=== PATIENT | female | born 1995 | race Caucasian/White ===

== ENCOUNTER → 2018-06-22 14:53 | Outpatient (CLI) | payer BC, SELFPAY ==
[2018-06-22 15:29] LABS: HCT 34.5 % (36.0-46.0); HGB 11.8 g/dL (12.0-15.5); Mean Corp. HGB Concentration 34.2 g/dL (32.0-36.0); Mean Corpuscular Hemoglobin 29.4 pg (27.0-33.0); Mean Corpuscular Volume 85.8 fL (80-95); Mean Platelet Volume 12.2 fL (8.0-11.0); Platelet Count 176 x1000/uL (130-400); RBC 4.02 m/cumm (4.00-5.20); RBC Distribution Width 13.1 % (11.7-14.6); White Blood Cell Count 11.08 k/cumm (4.4-10.8)
[2018-06-22 16:25] LABS: PROTEIN 20.5 mg/dL
[2018-06-22 16:41] LABS: COMMENT (LAB VIEW ONLY) 79.29 mg/dL; Prot/Crea Ur Ratio 0.25
[2018-06-22 16:55] LABS: ALT 17 U/L (12-78); AST 15 U/L (15-37); Albumin 2.6 g/dL (3.4-5.0); Alkaline Phosphatase 148 U/L (46-116); Bilirubin, Direct 0.09 mg/dL (0.00-0.20); Bilirubin, Total 0.3 mg/dL (0.2-1.0); Total Protein 6.2 g/dL (6.4-8.2); Uric Acid 3.6 mg/dL (2.6-6.0)
== END ==
PROVIDERS: PCP Nurse Practitioner; Visit Provider Advanced Practice Midwife
DX: Z87.59 Personal history of other complications of pregnancy, childbirth and the puerperium (principal); R68.89 Other general symptoms and signs
CPT/HCPCS: 36415; 80076; 85027; 82565; 84156; 84550

== ENCOUNTER → 2018-06-22 15:30 | Outpatient (REF) | payer BC, SELFPAY | LOC: LBN 15:30 | PROVIDERS: PCP Nurse Practitioner; Visit Provider Advanced Practice Midwife | DX: Z34.93 Encounter for supervision of normal pregnancy, unspecified, third trimester (principal) | CPT/HCPCS: 87081 ==

== ENCOUNTER → 2018-06-24 16:56 | Outpatient (CLI) | payer BC, SELFPAY ==
[2018-06-24 17:48] LABS: HCT 35.2 % (36.0-46.0); HGB 11.9 g/dL (12.0-15.5); Mean Corp. HGB Concentration 33.8 g/dL (32.0-36.0); Mean Corpuscular Hemoglobin 28.7 pg (27.0-33.0); Mean Platelet Volume 11.8 fL (8.0-11.0); Platelet Count 172 x1000/uL (130-400); RBC 4.14 m/cumm (4.00-5.20); RBC Distribution Width 13.2 % (11.7-14.6); White Blood Cell Count 12.77 k/cumm (4.4-10.8)
[2018-06-24 18:16] LABS: ALT 17 U/L (12-78); AST 19 U/L (15-37); Albumin 2.5 g/dL (3.4-5.0); Alkaline Phosphatase 147 U/L (46-116); Bilirubin, Direct 0.09 mg/dL (0.00-0.20); Bilirubin, Total 0.2 mg/dL (0.2-1.0); Total Protein 6.5 g/dL (6.4-8.2); Uric Acid 3.7 mg/dL (2.6-6.0)
[2018-06-24 19:11] LABS: PROTEIN 29.4 mg/dL
[2018-06-24 19:19] LABS: Prot/Crea Ur Ratio 0.17
== END ==
PROVIDERS: PCP Nurse Practitioner; Visit Provider Advanced Practice Midwife
DX: O26.893 Other specified pregnancy related conditions, third trimester (principal); R03.0 Elevated blood-pressure reading, without diagnosis of hypertension; Z3A.37 37 weeks gestation of pregnancy
CPT/HCPCS: 36415; 80076; 85027; 59025; 82565; 84156; 84550

== ENCOUNTER 2018-07-18 03:40 | Observation (INO) | payer BC, SELFPAY ==
[2018-07-18] MEDS: Zolpidem 10 MG TAB PO (03:40)
== END 2018-07-18 10:24 | disposition home or self-care (01) ==
LOC: OBS 13:16
PROVIDERS: Admitting Provider Advanced Practice Midwife; PCP Nurse Practitioner; Visit Provider Advanced Practice Midwife
DX: O47.1 False labor at or after 37 completed weeks of gestation (principal); O26.813 Pregnancy related exhaustion and fatigue, third trimester; O48.0 Post-term pregnancy; Z3A.40 40 weeks gestation of pregnancy
CPT/HCPCS: G0378

== ENCOUNTER 2018-07-19 04:45 | Inpatient (IN) | payer BC, SELFPAY ==
[2018-07-19 05:45] LABS: HCT 36.8 % (36.0-46.0); HGB 12.4 g/dL (12.0-15.5); Mean Corp. HGB Concentration 33.7 g/dL (32.0-36.0); Mean Corpuscular Hemoglobin 28.7 pg (27.0-33.0); Mean Corpuscular Volume 85.2 fL (80-95); Mean Platelet Volume 12.4 fL (8.0-11.0); Platelet Count 155 x1000/uL (130-400); RBC 4.32 m/cumm (4.00-5.20); RBC Distribution Width 14.2 % (11.7-14.6); White Blood Cell Count 13.09 k/cumm (4.4-10.8)
[2018-07-19] MEDS: Lactated Ringers 500 ML IV (10:10)
[2018-07-19] MEDS: Normal Saline Flush 10 ML SYR IVP (10:10)
[2018-07-19] MEDS: Bupivacaine 0.25% Pres-Free 30 ML VIAL (10:32)
[2018-07-19] MEDS: fentaNYL 100 MCG/2 ML VIAL (10:35)
[2018-07-19] MEDS: Lactated Ringers 1,000 ML 125 ML IV (11:00)
[2018-07-19] MEDS: Ibuprofen 600 MG TAB PO (18:45)
[2018-07-19] MEDS: Methylergonovine 0.2 MG/ML VIAL (18:59)
[2018-07-19] MEDS: oxyCODONE 5 mg/Acetaminophen 325 mg TAB 1 TAB PO (19:32)
[2018-07-19] MEDS: Oxytocin 10 UNITS/ML VIAL 20 UNITS IM (20:16)
[2018-07-19] MEDS: Ondansetron 4 MG/2 ML VIAL IVP (20:22)
[2018-07-20] MEDS: Lidocaine 2% Jelly 11 ML SYR (00:27)
[2018-07-20] MEDS: Ibuprofen 600 MG TAB PO ×3 (00:27→22:20)
[2018-07-20] MEDS: Hamamelis Leaf/Glycerin 100 EACH BOX PR (00:28)
[2018-07-20] MEDS: Ondansetron 4 MG/2 ML VIAL IVP (03:38)
[2018-07-20] MEDS: oxyCODONE 5 mg/Acetaminophen 325 mg TAB 1 TAB PO (03:42)
[2018-07-20] MEDS: Methylergonovine 0.2 MG TAB PO (03:43)
[2018-07-20] MEDS: Docusate Sodium 100 MG CAP PO (10:48)
[2018-07-20 18:49] LABS: HCT 28.3 % (36.0-46.0); HGB 9.4 g/dL (12.0-15.5); Mean Corp. HGB Concentration 33.2 g/dL (32.0-36.0); Mean Corpuscular Hemoglobin 28.7 pg (27.0-33.0); Mean Corpuscular Volume 86.5 fL (80-95); Platelet Count 150 x1000/uL (130-400); RBC 3.27 m/cumm (4.00-5.20); RBC Distribution Width 14.6 % (11.7-14.6); White Blood Cell Count 12.55 k/cumm (4.4-10.8)
[2018-07-21] MEDS: Docusate Sodium 100 MG CAP PO (20:42)
[2018-07-21] MEDS: Ferrous Sulfate 325 MG TAB PO (20:42)
== END 2018-07-21 20:30 | disposition home or self-care (01) | DRG 775 ==
PROVIDERS: Admitting Provider Advanced Practice Midwife; PCP Nurse Practitioner; Visit Provider Advanced Practice Midwife
DX: O48.0 Post-term pregnancy (principal); Z37.0 Single live birth; Z3A.40 40 weeks gestation of pregnancy; O69.81X0 Labor and delivery complicated by cord around neck, without compression, not applicable or unspecified; O32.8XX0 Maternal care for other malpresentation of fetus, not applicable or unspecified; O70.0 First degree perineal laceration during delivery; O90.81 Anemia of the puerperium; D50.9 Iron deficiency anemia, unspecified; Z29.13 Encounter for prophylactic Rho(D) immune globulin
CPT/HCPCS: 36415; 85027; 85461; 86850; 86900; 86901; 90384; J2210; J2405; J2590; J2790; J3010; J3490

== ENCOUNTER 2020-04-12 19:08 | Outpatient (REF) | payer BC, SELFPAY ==
[2020-04-12 21:59] LABS: Ferritin 32 ng/mL (8-252); HCT 41.3 % (36.0-46.0); HGB 13.9 g/dL (12.0-15.5); Mean Corp. HGB Concentration 33.7 g/dL (32.0-36.0); Mean Corpuscular Hemoglobin 29.8 pg (27.0-33.0); Mean Corpuscular Volume 88.6 fL (80-95); Platelet Count 228 x1000/uL (130-400); RBC 4.66 m/cumm (4.00-5.20); RBC Distribution Width 12.1 % (11.7-14.6); White Blood Cell Count 8.96 k/cumm (4.4-10.8)
[2020-04-17 12:49] LABS: IgA 127 mg/dL (85-499); Tissue Transglutaminase IgA <1.2 U/mL (<4.0)
== END 2020-04-12 19:28 ==
LOC: NCHCN 19:08
PROVIDERS: PCP Nurse Practitioner; Visit Provider Family Medicine
DX: L85.8 Other specified epidermal thickening (principal)
CPT/HCPCS: 82784; 83516; 85027; 82728

== ENCOUNTER 2020-06-30 17:40 | Outpatient (REF) | payer OTHER, SELFPAY ==
[2020-07-03 10:49] LABS: SARS-CoV-2 RNA Undetected (Undetected)
== END 2020-06-30 18:00 ==
LOC: NCHCN 17:40
PROVIDERS: PCP Nurse Practitioner; Visit Provider Nurse Practitioner Family
DX: R05 Cough (principal)
CPT/HCPCS: U0003

== ENCOUNTER 2020-07-20 13:32 | Outpatient (REF) | payer OTHER, SELFPAY ==
--- NOTE | 2020-07-20 11:15 | PAPFT_PTH ---
PATIENT: Aranza Ledezma LOC: [facility] U#:[id number] AGE/SX: 24/F ROOM: RE07/20/[address]: Cristian Salcido RN : 1995 BED: DIS: 07/20/2020 SPEC #: [id number] RECD: 07/20/20 15:40 STATUS: CHARITO REQ #: [id number] ANNA: 07/20/20 11:[address]: Cristian Salcido DEPT: [facility] Cytology RECD BY: Matilde Mayorga ENTERED: 07/20/20 15:41 SP TYPE: PAPFT OTHR DR: Carmella Burns Tissues: 1 - CX/ENDOCX FOR PAP SMEARS Procedures: PAP THIN PREP/UVM Screening Comments: [id number]
[2020-07-20 14:32] LABS: Tricyclic Antidepressants Negative (Negative)
[2020-07-20 14:36] LABS: *AMPHETAMINES SCREEN URINE Negative (Negative); *BARBITURATES SCREEN URINE Negative (Negative); *BENZODIAZEPINES SCREEN URINE Negative (Negative); Cannabinoids THC Negative (Negative); Cocaine Screen,Urine Negative (Negative); METHADONE URINE SCREEN Negative (Negative); OPIATES URINE SCREEN Negative (Negative)
[2020-07-26 11:08] LABS: Buprenorphine Negative; Norbuprenorphine Negative
[2020-08-02 14:54] LABS: Chlamydia Result Negative (Negative); GC Result Negative (Negative)
== END 2020-07-20 13:52 ==
LOC: LBN 13:32
PROVIDERS: PCP Nurse Practitioner; Visit Provider Advanced Practice Midwife
DX: Z12.4 Encounter for screening for malignant neoplasm of cervix (principal)
CPT/HCPCS: 80307; 87491; 87591; 88142; 87086

== ENCOUNTER 2020-08-07 02:03 | Outpatient (CLI) | payer OTHER, SELFPAY ==
[2020-08-07 08:05] LABS: Abs Immature Grans 0.08 10^3/uL (0.0-0.06); Absolute Basophil Count 0.02 10^3/uL (0.0-0.2); Absolute Eosinophil Count 0.08 10^3/uL (0.0-0.7); Absolute Lymphocyte Count 2.25 10^3/uL (1.2-3.4); Absolute Monocyte Count 0.71 10^3/uL (0.1-0.8); Absolute Neutrophil Count 8.42 10^3/uL (1.2-6.7); Basophils % 0.2; Eosinophils % 0.7; HCT 38.3 % (36.0-46.0); HGB 13.3 g/dL (11.2-15.7); Immature Grans % 0.7; Lymphocytes % 19.5; MCH 30.4 pg (27.0-33.0); MCHC 34.7 % (32.0-36.0); MCV 87.6 fL (80-95); MPV 12.4 fL (8.0-11.0); Monocytes % 6.1; Neutrophils % 72.8; Nucleated RBC 0 %; Platelet Count 176 10^3/uL (130-400); RBC 4.37 10^6/uL (3.93-5.22); RDW 12.1 % (11.7-14.6); RDW-SD 38.8 fL; WBC 11.56 10^3/uL (4.4-10.8)
[2020-08-07 08:07] LABS: Glucose,1 Hr (Glucola) 85 mg/dL (80-140)
[2020-08-07 08:57] LABS: TSH (W/Ref FT4) 2.38 uIU/mL (0.36-3.74)
[2020-08-08 10:00] LABS: Hepatitis B Surface Ag Negative (Negative)
[2020-08-08 10:44] LABS: Hepatitis C Ab w Rflx HCV PCR Negative (Negative)
[2020-08-08 10:47] LABS: Varicella IgG Antibody Negative (See Note)
[2020-08-08 10:52] LABS: Rubella IgG Ab (UVM) Positive (See Note)
[2020-08-08 11:04] LABS: HIV-1/2 Ag & Ab Screen Negative (Negative)
[2020-08-08 16:23] LABS: Syphilis Total Ab w/Reflex Nonreactive (Nonreactive)
== END 2020-08-07 02:23 ==
PROVIDERS: PCP Nurse Practitioner; Visit Provider Advanced Practice Midwife
DX: Z34.91 Encounter for supervision of normal pregnancy, unspecified, first trimester (principal); Z34.90 Encounter for supervision of normal pregnancy, unspecified, unspecified trimester
CPT/HCPCS: 36415; 82950; 86787; 86803; 86850; 86900; 86901; 87340; 87389; 84443; 85025; 86762; 86780

== ENCOUNTER 2020-09-04 01:14 | Outpatient (CLI) | payer OTHER, SELFPAY ==
--- NOTE | 2020-09-04 14:45 | DI.US_ITS ---
EXAM: US OB 2-3 TRIMESTER CLINICAL HISTORY: routine pnc. TECHNIQUE: Transabdominal obstetrical ultrasound performed. COMPARISON: No exams were available for comparison FINDINGS: Transabdominal obstetrical ultrasound performed. FINDINGS: Number of fetuses: One. position: Breech. heart rate: 160 bpm. Placental grade: 1 Placental location: Anterior, no evidence of previa. BIOMETRIC DATA: EFW: 302 grms 91% Composite Age: EDC by US: January 25, 2021 Amount of fluid is within normal limits. ANATOMICAL SURVEY: Four-chambered heart: Unremarkable. LVOT: Unremarkable. RVOT: Unremarkable. Left-sided stomach: Unremarkable. urinary bladder: Unremarkable. Bilateral kidneys: Unremarkable. Three-vessel cord: Unremarkable. Cord insertion: Unremarkable. Umbilical artery velocity: Unremarkable. Posterior fossa:Unremarkable. ventricles: Unremarkable. nose: Unremarkable. lips: Unremarkable. palate: Unremarkable. spine: Unremarkable. Two arms and two legs: Unremarkable. IMPRESSION: 1. Single live intrauterine gestation measuring 19 weeks 4 days. 2. Normal anatomic survey. DATA REPOSITORY:
== END 2020-09-04 01:34 ==
PROVIDERS: PCP Nurse Practitioner; Visit Provider Advanced Practice Midwife
DX: Z34.92 Encounter for supervision of normal pregnancy, unspecified, second trimester (principal)
CPT/HCPCS: 76805

== ENCOUNTER 2020-11-07 01:58 | Outpatient (CLI) | payer OTHER, SELFPAY ==
[2020-11-07 07:24] LABS: Glucose,1 Hr (Glucola) 180 mg/dL (80-140); HGB 11.1 g/dL (11.2-15.7); MCH 29.3 pg (27.0-33.0); MCHC 33.6 % (32.0-36.0); MCV 87.1 fL (80-95); MPV 12.2 fL (8.0-11.0); Platelet Count 181 10^3/uL (130-400); RBC 3.79 10^6/uL (3.93-5.22); RDW 12.2 % (11.7-14.6); WBC 11.17 10^3/uL (4.4-10.8)
== END 2020-11-07 02:18 ==
PROVIDERS: Advanced Practice Midwife; PCP Nurse Practitioner; Visit Provider Advanced Practice Midwife
DX: O36.0130 Maternal care for anti-D [Rh] antibodies, third trimester, not applicable or unspecified (principal); Z3A.28 28 weeks gestation of pregnancy
CPT/HCPCS: 36415; 82950; 85027; 86850; 90384

== ENCOUNTER 2020-11-15 02:41 | Outpatient (CLI) | payer OTHER, SELFPAY ==
[2020-11-15 08:53] LABS: Glucose 1 Hour 110 mg/dL
[2020-11-15 10:58] LABS: Glucose 3 Hour 55 mg/dL
== END 2020-11-15 03:01 ==
PROVIDERS: PCP Nurse Practitioner; Visit Provider Advanced Practice Midwife
DX: Z34.93 Encounter for supervision of normal pregnancy, unspecified, third trimester (principal); Z3A.29 29 weeks gestation of pregnancy
CPT/HCPCS: 36415; 82951

== ENCOUNTER 2021-01-05 18:03 | Outpatient (REF) | payer OTHER, SELFPAY ==
[2021-01-05 18:16] LABS: *AMPHETAMINES SCREEN URINE Negative (Negative); *BARBITURATES SCREEN URINE Negative (Negative); *BENZODIAZEPINES SCREEN URINE Negative (Negative); Cannabinoids THC Negative (Negative); Cocaine Screen,Urine Negative (Negative); METHADONE URINE SCREEN Negative (Negative); OPIATES URINE SCREEN Negative (Negative)
[2021-01-05 18:17] LABS: Tricyclic Antidepressants Negative (Negative)
[2021-01-12 04:15] LABS: Buprenorphine Negative ng/mL (Cutoff: 5.0); Norbuprenorphine Negative ng/mL (Cutoff: 2.5)
== END 2021-01-05 18:04 | disposition home or self-care (01) ==
LOC: LBN 18:03
PROVIDERS: PCP Nurse Practitioner; Visit Provider Advanced Practice Midwife
DX: Z34.93 Encounter for supervision of normal pregnancy, unspecified, third trimester (principal); Z36.85 Encounter for antenatal screening for Streptococcus B; Z3A.36 36 weeks gestation of pregnancy
CPT/HCPCS: 80307; 87081

== ENCOUNTER 2021-01-15 16:04 | Outpatient (CLI) | payer OTHER, SELFPAY | END 2021-01-15 16:05 | disposition home or self-care (01) | PROVIDERS: PCP Nurse Practitioner; Visit Provider Advanced Practice Midwife | DX: Z39.1 Encounter for care and examination of lactating mother (principal) | CPT/HCPCS: E0602 ==

== ENCOUNTER 2021-01-31 05:54 | Inpatient (IN) | payer OTHER, SELFPAY ==
[2021-01-31] VITALS (26 sets, daily range): BP systolic 86–153; BP diastolic 51–85; PULSE 71–101; RESP 18; TEMP 36.5–36.8; O2SAT 86–100
[2021-01-31 07:23] LABS: Source Nasal/Nares
--- NOTE | 2021-01-31 07:32 | HPE_ITS ---
Date of service: 01/31/21 Time of Service: 07:32 Assessment and Plan Assessment and plan (1) Spontaneous rupture of amniotic membranes: Status: Acute Assessment and plan: A: Multipara with SROM at term, mild contractions GBS neg, Rh neg & received RhoGam @ 28 wks Varicella Non-Immune, nml 3 hr GTT at 29 wks Low risk for SD, mild risk for PPH d/t LGA fetus Category 1 tracing, clear fluid, EFW 4100 gms (proven to '13) P: Admit to BC, T&S, CBC, COVID swab for inhouse test Intermittent auscultation and expectant management Anticipate Hand-off to oncoming film or tape librarian SHEFALI Martinez @ 0800 Varicella vaccine , expecting male , planning circ and (2) 40 weeks gestation of : Status: Acute OB-HPI Labor/Delivery History of Present Illness Reason for Visit: SROM AT TERM, LABOR Chief Complaint: Suspected Rupture of Membranes (Contractions since 0200) , Associated Signs and Symptoms of Suspected ROM: Clear fluid tricking since 0500, after which contractions diminished. No nausea, or diarrhea, or vaginal bleeding.. [place] Calculator Estimated Delivery Date Method Current WG Current Estimate 01/31/21 LMP (Certain) 40w 0d Other Estimates 01/29/21 Ultrasound #1 40w 2d History of Present Expected Delivery Route/Plan - CNM FOB/ - Jw Ledemza Varicella non-immune, offer vaccine Tub for labor, probably not delivery BB- Christopher GBS negative Specific Issues/Plan 1. LGA infant thus needs early gct.; result is 85 1a. 11/07/20 gct =180 gtt tab.al 1b. 11/15/20 3hr gtt: wnl x4. al 2. Risk increased for pph/shoulder dystocia d/t hx LGA . 3. Varicella non-immune 4. 11/07/20 Rhogam given. al- given at the Center- need documentation for the chart Assessment: History Reviewed & Current Review of Systems All systems reviewed & are unremarkable except as noted in HPI and below Constitutional Constitutional: Reports as per HPI ENT Ears, Nose, Mouth, and Throat: Reports system reviewed and no additional complaints, except as documented Cardiovascular Cardiovascular: Reports system reviewed and no additional complaints, except as documented Respiratory Respiratory: Reports system reviewed and no additional complaints, except as documented Gastrointestinal Gastrointestinal: Reports as per HPI and Reports system reviewed and no additional complaints, except as documented Genitourinary Genitourinary: Reports system reviewed and no additional complaints, except as documented and Reports as per HPI Musculoskeletal Musculoskeletal: Reports system reviewed and no additional complaints, except as documented Integumentary/Breasts Skin/Breast: Reports system reviewed and no additional complaints, except as documented Neurologic Neurologic: Reports system reviewed and no additional complaints, except as documented Psychiatric Psychiatric: Reports system reviewed and no additional complaints, except as documented PFSH Medical History (Updated 01/31/21 @ 07:39 by Shelbie Raines) Positive test Surgical History (Updated 07/20/20 @ 10:44 by Cristian Salcido CNM) S/P left knee surgery Tonsillectomy 06/2013 Tooth extraction [place] teeth Family History Mother Essential hypertension Father Essential hypertension Social History Smoking/Tobacco Use Status: Never Smoking risk assessment performed?: Yes Alcohol Intake: current Alcohol Intake frequency: a few times a month Counseling provided: other Drug use: Never Counseling provided: other Details: stopped for Adopted: No Foster care: No 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 What is your relationship status?: Panel score (0-1 are the most socially isolated patients): 1 Seatbelt use: always Helmet use: Yes Drive intox or ride w/intox driver messenger: No Water heater temp set <120 deg: Yes Working smoke detector in home: Yes Fire extinguisher in home: Yes Carbon monox detector in home: Yes Firearms in home: Yes Do you feel safe at home: Yes Victim of physical abuse: No Victim of emotional abuse: No Victim of sexual abuse: No Female Reproductive History Menstrual control method: condoms History History 1 Para 1 Hx # Term Pregnancies 1 Multiple births 0 Hx # Pregnancies 0 Ectopic pregnancies 0 AB induced 0 Hx Number of Living Children 1 AB spontaneous 0 Past Pregnancies Del. Date GA/Weeks # Outcome Route Wgt Sex Labor Lgth Anesthes ia Location Prov Complic 07/19/18 40 No Successful vaginal [address] lb [address] [facility] shelbie Raines Delivery Date: 07/19/18 Epidural. Pitocin and methergine for clotting. EBL 400cc. Shelley Kaur Meds Home Medications and Allergies Allergies Allergy/AdvReac Type Severity Reaction Status Date / Time amoxicillin Allergy SKIN RASH Verified 01/29/21 10:47 clavulanic acid Allergy UNKNOWN Verified 01/29/21 10:47 codeine AdvReac Intermediate kept her Verified 01/29/21 10:47 awake for 48 hrs Home Medications Medication Instructions Recorded Confirmed Type prenat.vits,eprcy,ipu-dxjk-eymsl 1 tab PO DAILY #30 tab 07/20/18 01/31/21 Rx ferrous sulfate 325 mg (65 mg 325 mg PO BID #90 tab 11/07/20 01/31/21 Rx iron) tablet breast pump #1 ea 01/15/21 01/31/21 Rx Exam Physical Exam Vital signs: Temp Pulse BP 97.9 F 96 H 120/71 01/31/21 07:19 01/31/21 07:22 01/31/21 07:22 Vital Signs Reviewed: Yes Constitutional Constitutional: no acute distress Detailed Labor and Delivery Exam Barrios Score: Cervical Points Exam 0 1 2 3 Dilation Closed 1-2cm 3-4 cm 5-6cm Effacement 0-30% 40-50% 60-70% 80% Consistency Firm Medium Soft Station -3 -2 -1,0 +1,+2 Position Posterior Mid Anterior Amniotic Membrane Status: Ruptured (gross rupture, fluid visible at introitus) Rupture Method: Spontaneous Amniotic Fluid: Clear Nitrazine: Positive Contraction Frequency(min): irregular, q 2-4 minutes Contraction Intensity: Mild/Moderate Fetus A Heart Rate Baseline: 130 Monitor Accelerations: 15 X 15 Monitor Decelerations: None Variability: Moderate (6-25 BPM) Presentation: Cephalic Categories: Category I Est. Weight: 9 lb 0.623 oz Est. Weight: 4100 gms Date of Membrane Rupture: 01/31/21 Time of Membrane Rupture: 05:00 HEENT Exam HEENT Exam: Normal Neck Exam Neck Exam: Normal Chest/Brest/Axilla Exam Chest Exam: Normal Breast Exam Breast Exam: Normal Respiratory Exam Respiratory Exam: Normal Cardiovascular Exam Cardiovascular Exam: Normal Abdominal Exam Abdominal Exam: Normal (Gravid, soft) Rectal Exam Rectal Exam: Not Done Exam Exam: Not Done (deferred at this time) Extremities Exam Extremities Exam: Normal Back/Spine/Pelvis Exam Back Exam: Normal Pelvis Adequate: Yes (proven to ) Skin Exam Skin Exam: Normal Neurological Exam Neurological Exam: Normal Psychiatric Exam Psychiatric Exam: Normal Results Results Group Beta Strep: Negative Blood Type: A- Rubella Status: Immune Varicella Immunity: Nonimmune Risk Assessment Risk for Shoulder Dystocia Historical/Initial OB: POSITIVE FOR: Previous Macrosomia (1st born was 9lbs 13 oz will need early gct. al); NEGATIVE FOR: Pelvic Abnormality, Pre- BMI>30 or Previous Shoulder Dystocia 40 Weeks: NEGATIVE FOR: EFW> 4500 gms, Maternal Weight Gain >40lb or Post Dates Increased Risk?: No Delivery Plan @ 40 wks: proven to Risk for Pre-Eclampsia Daily Dose ASA Indicated: No Date Initiated/Initials: 07/20/20 al Yes, if one or more: NEGATIVE FOR: Hx Pre-E/Gest HTN, Chronic HTN, Multiple Gestation, Pre-gestational DM, Renal Disease, Systemic Lupus or APA Syndrome Yes, if 2 or more: POSITIVE FOR: Mother/Sister w/ Pre-E; NEGATIVE FOR: Nulliparity, Age>= 35 yrs, >10yr btwn pregnancies, BMI>30, ethinicty or Previous IUGR Risk for Post- Hemorrhage Initial: POSITIVE FOR: Previous PPH (pt states needed miso & sweep of lower uterine seg. EBL documented @ 400 ml); NEGATIVE FOR: Multiple Gestation, Known Clotting Deficiency, Grand Multiparity or Anticoagulation At Risk?: Yes Counseled re: Active Management: Yes Date/Initials: nml 3 hr GTT @ 29 wks, hx LGA fetus Risks Reviewed Risks Reviewed Upon Admission: Yes
[2021-01-31 08:13] LABS: COVID-19 PCR Negative (Negative)
[2021-01-31 08:24] LABS: HCT 36.8 % (36.0-46.0); HGB 12.2 g/dL (11.2-15.7); MCH 27.5 pg (27.0-33.0); MCHC 33.2 % (32.0-36.0); MCV 83.1 fL (80-95); MPV 12.9 fL (8.0-11.0); RBC 4.43 10^6/uL (3.93-5.22); RDW 13.3 % (11.7-14.6); RDW-SD 40.5 fL
--- NOTE | 2021-01-31 08:44 | W.PM.OBNL1 ---
Date of service: 01/31/21 Time of Service: 08:44 Informed Consent Informed Consent: Augmentation of Labor (discussed misoprostol use, patient is aware of risks/benefits or misoprostol and pitocin for augmentation.) Pelvic Exam Dilation: 4 Effacement (%): 70 station: -3 Cervix Position: posterior Consistency: soft Vaginal Exam Presentation: Cephalic Comments: continues to leak small amounts of clear fluid. Contractions Monitor Mode: Palpation Contraction Frequency(min): irregular Intensity: Mild/Moderate Fetus A Monitor: Doppler Heart Rate Baseline: 130 Assessment Note: currently using intermittent doppler / monitoring. Last tracing CAT I.KH Assessment and Plan Assessment and plan (1) Spontaneous rupture of amniotic membranes: Status: Acute (2) 40 weeks gestation of : Status: Acute Objective Temp Pulse BP 98.1 F 96 H 120/71 01/31/21 08:44 01/31/21 07:22 01/31/21 07:22 Laboratory Results COVID-19 Source Nasal/nares 01/31/21 07:10 SARS-CoV-2 (PCR) Negative (Negative) 01/31/21 07:10 Patient ABO/Rh A Negative 01/31/21 08:09 Subjective Interval history since last seen: States she is having irregular contractions and is curious of her VE. Would also like to intervene with augmentation by 1200 if not actively in labor. States she prefers to try misoprostol first. Plan for pain management will depend on degree of augmentation required. At this time no plan for epidural and is happy with ambulation and ball. Interventions Other (initial VE since arrival done, /-3 posterior and soft. discussed augmentation vs expectant management, patient prefers to wait until noon and if not in active labor to try dose of misoprostal at that time. Tonnage Compilation Clerk agrees with plan and will review with MD senior telecommunications technician as well. )
[2021-01-31 08:48] LABS: WBC 16.32 10^3/uL (4.4-10.8)
[2021-01-31 08:49] LABS: Platelet Count 184 10^3/uL (130-400)
--- NOTE | 2021-01-31 11:24 | W.PM.OBNL1 ---
Date of service: 01/31/21 Time of Service: 11:24 Informed Consent Informed Consent: Augmentation of Labor (discussed misoprostol use, patient is aware of risks/benefits or misoprostol and pitocin for augmentation.) Contractions Monitor Mode: None Fetus A Monitor: External (US) Heart Rate Baseline: 130 Presentation: Cephalic Variability: Moderate (6-25 BPM) Categories: Category I Accelerations: 15 X 15 Decelerations: None Assessment and Plan Assessment and plan (1) 40 weeks gestation of : Status: Acute (2) Spontaneous rupture of amniotic membranes: Status: Acute Assessment and plan: will start augmentation with misoprostol 50 mcg PO per consult with Dr. Belle. Reassess in 4 hours or prn.KH Objective Abnormal lab results 01/31/21 Range/Units 08:09 WBC 16.32 H (4.4-10.8) 10^3/uL MPV 12.9 H (8.0-11.0) fL Temp Pulse Resp BP 98.2 F 93 H 18 121/73 01/31/21 10:53 01/31/21 10:53 01/31/21 10:53 01/31/21 10:53 Laboratory Results WBC 16.32 10^3/uL (4.4-10.8) H 01/31/21 08:09 RBC 4.43 10^6/uL (3.93-5.22) 01/31/21 08:09 Hgb 12.2 g/dL (11.2-15.7) 01/31/21 08:09 Hct 36.8 % (36.0-46.0) 01/31/21 08:09 MCV 83.1 fL (80-95) 01/31/21 08:09 MCH 27.5 pg (27.0-33.0) 01/31/21 08:09 MCHC 33.2 % (32.0-36.0) 01/31/21 08:09 RDW 13.3 % (11.7-14.6) 01/31/21 08:09 Plt Count 184 10^3/uL (130-400) 01/31/21 08:09 MPV 12.9 fL (8.0-11.0) H 01/31/21 08:09 COVID-19 Source Nasal/nares 01/31/21 07:10 SARS-CoV-2 (PCR) Negative (Negative) 01/31/21 07:10 Patient ABO/Rh A Negative 01/31/21 08:09 Antibody Screen Negative 01/31/21 08:09 Vital Signs Reviewed: Yes Subjective Interval history since last seen: Denies increase in contractions. Is prepared to move forward with misoprostol. Interventions Other (will give misoprostol 50 mcg PO once and reassess in 4 hours per consult with Dr. Belle. ) Results Hemoglobin/Hematocrit: Hgb 12.2 g/dL (11.2-15.7) 01/31/21 08:09 Hct 36.8 % (36.0-46.0) 01/31/21 08:09 Abnormal Lab Findings: Abnormal Labs 01/31/21 08:09 WBC 16.32 H MPV 12.9 H
[2021-01-31] MEDS: miSOPROStol 25 MCG TAB 50 MCG PO (11:35)
[2021-01-31] MEDS: Normal Saline Flush 10 ML SYR IVP ×2 (11:35→16:28)
--- NOTE | 2021-01-31 16:16 | W.PM.OBNL1 ---
Date of service: 01/31/21 Time of Service: 16:16 Informed Consent Informed Consent: Augmentation of Labor (discussed misoprostol use, patient is aware of risks/benefits or misoprostol and pitocin for augmentation.) Pelvic Exam Dilation: 4 Effacement (%): 70 station: -4 Cervix Position: posterior Consistency: soft Vaginal Exam Presentation: Cephalic Contractions Monitor Mode: External Contraction Frequency(min): irregular Intensity: Mild Fetus A Monitor: External (US) Heart Rate Baseline: 125 Presentation: Cephalic Variability: Moderate (6-25 BPM) Categories: Category I Accelerations: 15 X 15 Decelerations: None (tracing is broken at times as patient is out of bed standing at bedside) Amniotic Membrane Status: Ruptured (leaking clear fluid) Assessment and Plan Assessment and plan (1) Spontaneous rupture of amniotic membranes: Status: Acute (2) 40 weeks gestation of : Status: Acute (3) Irregular uterine contractions: Status: Acute Objective Abnormal lab results 01/31/21 Range/Units 08:09 WBC 16.32 H (4.4-10.8) 10^3/uL MPV 12.9 H (8.0-11.0) fL Temp Pulse Resp BP 97.7 F 92 H 18 120/78 01/31/21 16:12 01/31/21 16:12 01/31/21 10:53 01/31/21 16:12 Laboratory Results WBC 16.32 10^3/uL (4.4-10.8) H 01/31/21 08:09 RBC 4.43 10^6/uL (3.93-5.22) 01/31/21 08:09 Hgb 12.2 g/dL (11.2-15.7) 01/31/21 08:09 Hct 36.8 % (36.0-46.0) 01/31/21 08:09 MCV 83.1 fL (80-95) 01/31/21 08:09 MCH 27.5 pg (27.0-33.0) 01/31/21 08:09 MCHC 33.2 % (32.0-36.0) 01/31/21 08:09 RDW 13.3 % (11.7-14.6) 01/31/21 08:09 Plt Count 184 10^3/uL (130-400) 01/31/21 08:09 MPV 12.9 fL (8.0-11.0) H 01/31/21 08:09 COVID-19 Source Nasal/nares 01/31/21 07:10 SARS-CoV-2 (PCR) Negative (Negative) 01/31/21 07:10 Patient ABO/Rh A Negative 01/31/21 08:09 Antibody Screen Negative 01/31/21 08:09 Subjective Interval history since last seen: Is not having active contractions. Is prepared to begin Pitocin augmentation. Patient Relations Manager has reviewed risks / benefits and alternatives to pitocin and patient would like to move forward. Is planning to have epidural only if it becomes too intense. Will give Anesthesia a notification. Interventions Augmentation , Pitocin rate (mU/min): 2 will increase by 2 every 30 minutes until active labor, this was previously reviewed with Dr. Belle. . Results Hemoglobin/Hematocrit: Hgb 12.2 g/dL (11.2-15.7) 01/31/21 08:09 Hct 36.8 % (36.0-46.0) 01/31/21 08:09 Abnormal Lab Findings: Abnormal Labs 01/31/21 08:09 WBC 16.32 H MPV 12.9 H
[2021-01-31] MEDS: Oxytocin/Normal Saline 30 UNIT/500 ML BAG 2 UNITS IV (16:20)
[2021-01-31] MEDS: Lactated Ringers 1,000 ML 125 ML IV (16:20)
--- NOTE | 2021-01-31 19:39 | PGE_ITS ---
Date of service: 01/31/21 Time of Service: 19:39 Informed Consent Informed Consent: Augmentation of Labor (discussed misoprostol use, patient is aware of risks/benefits or misoprostol and pitocin for augmentation.) Contractions Monitor Mode: External Contraction Frequency(min): 2-4 minutes lasting 60 Fetus A Monitor: External (US) Heart Rate Baseline: 120 Variability: Moderate (6-25 BPM) Categories: Category I Assessment and Plan Assessment and plan (1) 40 weeks gestation of : Status: Acute (2) Spontaneous rupture of amniotic membranes: Status: Acute Objective Abnormal lab results 01/31/21 Range/Units 08:09 WBC 16.32 H (4.4-10.8) 10^3/uL MPV 12.9 H (8.0-11.0) fL Temp Pulse Resp BP 97.9 F 77 18 119/78 01/31/21 18:12 01/31/21 18:12 01/31/21 10:53 01/31/21 18:12 Laboratory Results WBC 16.32 10^3/uL (4.4-10.8) H 01/31/21 08:09 RBC 4.43 10^6/uL (3.93-5.22) 01/31/21 08:09 Hgb 12.2 g/dL (11.2-15.7) 01/31/21 08:09 Hct 36.8 % (36.0-46.0) 01/31/21 08:09 MCV 83.1 fL (80-95) 01/31/21 08:09 MCH 27.5 pg (27.0-33.0) 01/31/21 08:09 MCHC 33.2 % (32.0-36.0) 01/31/21 08:09 RDW 13.3 % (11.7-14.6) 01/31/21 08:09 Plt Count 184 10^3/uL (130-400) 01/31/21 08:09 MPV 12.9 fL (8.0-11.0) H 01/31/21 08:09 COVID-19 Source Nasal/nares 01/31/21 07:10 SARS-CoV-2 (PCR) Negative (Negative) 01/31/21 07:10 Patient ABO/Rh A Negative 01/31/21 08:09 Antibody Screen Negative 01/31/21 08:09 Subjective Interval history since last seen: requesting epidural for pain management. Nursing Air Twister Winder notified and will page anesthesia for this. will reassess cervix after patient is more comfortable. Expect NVD. KH Results Hemoglobin/Hematocrit: Hgb 12.2 g/dL (11.2-15.7) 01/31/21 08:09 Hct 36.8 % (36.0-46.0) 01/31/21 08:09 Abnormal Lab Findings: Abnormal Labs 01/31/21 08:09 WBC 16.32 H MPV 12.9 H
[2021-01-31] MEDS: Lactated Ringers 500 ML IV (20:15)
[2021-01-31] MEDS: FentaNYL/ROPIvacaine 2 mcg/ml and 0.1% 200 ML CADD Cassette EP (20:15)
--- NOTE | 2021-01-31 21:08 | W.PM.OBNL1 ---
Date of service: 01/31/21 Time of Service: 21:08 Informed Consent Informed Consent: Augmentation of Labor (discussed misoprostol use, patient is aware of risks/benefits or misoprostol and pitocin for augmentation.) Pelvic Exam Dilation: 7 Effacement (%): 80 station: -2 Cervix Position: posterior Consistency: soft Vaginal Exam Presentation: Cephalic Contractions Monitor Mode: External Contraction Frequency(min): every 3 minutes, lasting 60-90 seconds Intensity: Moderate/Strong Fetus A Monitor: External (US) Heart Rate Baseline: 120 Variability: Moderate (6-25 BPM) Categories: Category I Accelerations: 15 X 15 Decelerations: None Assessment and Plan Assessment and plan (1) Active labor at term: Status: Acute Assessment and plan: continue present management Objective Abnormal lab results 01/31/21 Range/Units 08:09 WBC 16.32 H (4.4-10.8) 10^3/uL MPV 12.9 H (8.0-11.0) fL Temp Pulse Resp BP Pulse Ox 97.9 F 83 18 120/67 100 01/31/21 18:12 01/31/21 20:52 01/31/21 10:53 01/31/21 20:52 01/31/21 20:42 Laboratory Results WBC 16.32 10^3/uL (4.4-10.8) H 01/31/21 08:09 RBC 4.43 10^6/uL (3.93-5.22) 01/31/21 08:09 Hgb 12.2 g/dL (11.2-15.7) 01/31/21 08:09 Hct 36.8 % (36.0-46.0) 01/31/21 08:09 MCV 83.1 fL (80-95) 01/31/21 08:09 MCH 27.5 pg (27.0-33.0) 01/31/21 08:09 MCHC 33.2 % (32.0-36.0) 01/31/21 08:09 RDW 13.3 % (11.7-14.6) 01/31/21 08:09 Plt Count 184 10^3/uL (130-400) 01/31/21 08:09 MPV 12.9 fL (8.0-11.0) H 01/31/21 08:09 COVID-19 Source Nasal/nares 01/31/21 07:10 SARS-CoV-2 (PCR) Negative (Negative) 01/31/21 07:10 Patient ABO/Rh A Negative 01/31/21 08:09 Antibody Screen Negative 01/31/21 08:09 Vital Signs Reviewed: Yes Objective Narrative Objective Narrative: active labor, pitocin at 18 mu. expect NVD Subjective Interval history since last seen: much more comfortable since eipidural, has some pressure but no involuntary urge to push. Results Hemoglobin/Hematocrit: Hgb 12.2 g/dL (11.2-15.7) 01/31/21 08:09 Hct 36.8 % (36.0-46.0) 01/31/21 08:09 Abnormal Lab Findings: Abnormal Labs 01/31/21 08:09 WBC 16.32 H MPV 12.9 H
--- NOTE | 2021-01-31 23:31 | OBVDS_ITS ---
Date of service: 01/31/21 Time of Service: 23:31 OB Labor/ Delivery Information Baby A Delivery Delivery Method: Spontaneaous Presentation: Cephalic Cephalic Position: Vertex Vertex Position: Left Occipital Anterior Cord Description-Baby A: 3 Vessels Cord Description Comment: length 38 inches Amniotic Fluid: Clear Delivery Outcome: Liveborn Infant Transferred: Remains with Mother Note: Live male delivers IVELISSE over 1st degree midline perineal laceration. Shoulders deliver with maternal pushing effort and gentle downward guidance followed by gentle upward guidance of anterior and posterior shoulders respectively. Baby is then brought to Mother's abdomen by her reaching for her baby and support of Linen Folder. After cord ceases pulsations, cord is clamped times 2 and cut by FOB. score 8 at 1 minute and 9 at 5 minutes. Positive family bonding noted. Placenta delivers shortly after via dee mechanism, intact. Fundus firms to U with massage. Pitocin run at 333 for 30 minutes and decreased to 95 cc/hour. laceration is infiltrated with 1% lidocaine and repaired with running stitch and subcuticular stitches with 3.0 chromic suture. EBL 300 cc. Mother and baby are in satisfactory condition and will remain together for steiner hour. See completed delivery record for weight. Providers Nurse Linen Folder: Shelley Martinez Senior Systems Programmer: Avinash Hernandes Nurse: Berenice Yip Nurse: Sapna Goss Labor/Delivery Information Number of Babies in Womb: 1 Steroids Given: None Reason Steroids Not Administered: N/A Group Beta Strep: Negative Antibiotics Administered: No Rubella Status: Immune Blood Type: A- Varicella Immunity: Nonimmune Medication in Delivery: nitrous Shoulder Dystocia: No Stages of Labor Onset of Labor Date: 01/31/21 Onset of Labor Time: 16:30 Complete Dilatation Date: 01/31/21 Complete Dilatation Time: 22:05 Labor - Stage 1 Duration: 0 minutes ROM Baby A: 01/31/21 ROM Baby A: 05:00 Infant Delivery Date-Baby A: 01/31/21 Delivery Time-Baby A: 22:59 Labor Stage 2 Duration: 54 minutes Placenta Delivery Date-Baby A: 01/31/21 Placenta Delivery Time-Baby A: 23:09 Labor-Stage 3 Duration: 10 minutes Total Length of Labor-Baby A: 6 hours and 29 minutes Placenta Cultured: No Placenta Status: Delivered Baby A Gender: Male Gestational Status: Term (39-41.6 wks) Gestational Age in Weeks/Days: 40 Weeks and 0 Days Score-1 Minute Interval(Baby A) Heart Rate-1 minute: 100 BPM or Greater Respiratory Effort- 1 minute: Spontaneous/Strong Cry Muscle Tone-1 minute: Active Movement Reflex Response-1 minute: Prompt Response Color-1 minute: Pallor or Cyanosis Total Score-1 minute: 8 Score-5 Minute Interval(Baby A) Heart Rate- 5 minute: 100 BPM or Greater Respiratory Effort-5 minute: Spontaneous/Strong Cry Muscle Tone-5 minute: Active Movement Reflex Response-5 minute: Prompt Response Color-5 minute: Bluish Hands or Feet Total Score- 5 minute: 9 Procedure Procedures: Cord Blood Collection Interventions Repair of Laceration
[2021-02-01] VITALS (22 sets, daily range): BP systolic 102–125; BP diastolic 53–93; PULSE 70–129; RESP 16–18; TEMP 36.6–36.9; O2SAT 97–98
[2021-02-01] MEDS: Methylergonovine 0.2 MG/ML VIAL (01:30)
[2021-02-01] MEDS: Carboprost 250 MCG/ML AMP (01:51)
[2021-02-01] MEDS: Ondansetron 4 MG/2 ML VIAL (02:05)
--- NOTE | 2021-02-01 02:28 | W.PM.OBPNV1 ---
Date of service: 02/01/21 Time of Service: 02:28 Assessment and Plan Assessment and plan (1) hemorrhage: Status: Acute Assessment and plan: Patient received Methergine x1, Hemabate x1, TXA x1, second bag of Pitocin, Cytotec 800 mcg rectally, Baca catheter placed for continuous bladder drainage. Large amounts of clot had been passed, greater than 1500 cc total blood loss Subjective Subjective Interval history: Called to the patient's bedside at 1:51 AM for evaluation of hemorrhage. Patient had been up to the bathroom passed a large clot and had brisk vaginal bleeding. Nurse burr machine operator had been contacted and orders given for a dose of Methergine which patient received. On presentation at bedside patient laying supine somewhat pale vital signs taken. Called for hemorrhage medications and hemorrhage kit 2. Brought to the room. Exam Physical Exam Vital signs: Temp Pulse Resp BP Pulse Ox 97.9 F 110 H 18 120/83 100 01/31/21 18:12 02/01/21 02:20 01/31/21 10:53 02/01/21 02:20 01/31/21 20:42 Constitutional Constitutional: mild distress and cooperative Respiratory Exam Respiratory Exam: Normal Cardiovascular Exam Cardiovascular Exam: Normal Abdominal Exam Comments: Abdomen soft nontender Fundal Exam Comment: Fundus at the time of initial presentation uterus was at the umbilicus, somewhat boggy, bimanual examination revealed a large amount of clot in the vagina, lower uterine segment, and uterus which were manually expressed. Cervix palpated intact. After expression, and oxytocics uterus firm, 3 cm below the umbilicus. Extremities Exam Extremity Exam: Normal Results Hemoglobin/Hematocrit: Hgb 12.2 g/dL (11.2-15.7) 01/31/21 08:09 Hct 36.8 % (36.0-46.0) 01/31/21 08:09 Abnormal Lab Findings: Abnormal Labs 01/31/21 08:09 WBC 16.32 H MPV 12.9 H Procedure Procedures: Control of Hemorrhage , Called to bedside at 151. Vital signs with pulse in the 80s, blood pressure 1 teens over 70s, uterus at the umbilicus, boggy, large amounts of clots expressed from the vagina, lower uterine segment, uterus. Requested second IV start, hemorrhage kit in the room, additional help for recording of events. Patient received 1 dose of Methergine, followed by Hemabate x1 dose. Pitocin had been opened widely, TXDanyelle farrar, Cytotec 800 mcg placed rectally. Baca catheter was inserted for continuous bladder drainage and approximately 400 cc of yellow urine returned. Throughout the entirety of medication administration patient had fundal and lower uterine segment massage. On bimanual examination there is no evidence of cervical disruption or pelvic sidewall hematoma noted. At the completion of previously mentioned oxytocics uterus is firm, 3 cm below the umbilicus with scant trickle of blood. Pads were weighed for greater than 1500 cc of blood and clot. Patient remained hemodynamically stable throughout with mild elevation of pulse to a maximum of 88 blood pressure 1 teens over 70s to 80s throughout. We will continue to monitor closely, Pitocin third bag hanging with a rate of 95 cc. Catheter will remain in place. Postevent debriefing held with patient
--- NOTE | 2021-02-01 02:40 | OBPPV_ITS ---
Date of service: 02/01/21 Time of Service: 02:40 Assessment and Plan Assessment and plan (1) hemorrhage: Status: Acute Assessment and plan: will continue with hourly urine output, VS and fundal checks. IV X [address] Pitocin 30 units in 500 cc running at 95 cc/hr at this time. Subjective Subjective Interval history: writer editor was paged at 0137 to attend patient due to PPH. Dr. Belle was in house and writer editor asked for her to be called as I came in to assess. On arrival, patient was stable, fundus and lower uterine segment were firming status post medications and evacuation of clots by MD. VS stable, 200 cc of urine output noted in melvin. See MD note for details of management and QBL. Exam Physical Exam Vital signs: Temp Pulse Resp BP Pulse Ox 97.9 F 110 H 18 120/83 100 01/31/21 18:12 02/01/21 02:20 01/31/21 10:53 02/01/21 02:20 01/31/21 20:42 Vital Signs Reviewed: Yes Constitutional Constitutional: moderate distress Comments: nausea and vomiting after uterotonics used and TXA. severe cramping reported and patient is medication wtih Nubain 10 mg IV and Phenergan 12.5 mg IV per consult with Dr. Belle. Respiratory Exam Respiratory Exam: Normal Cardiovascular Exam Cardiovascular Exam: Normal Fundal Exam Fundus: Below Umbilicus and Firm Comment: scant flow at time of this note, no further clots at this time. Rectal Exam Rectal Exam: Not Done Neurological Exam Neurological Exam: Normal Psychiatric Exam Psychiatric Exam: Normal Results Hemoglobin/Hematocrit: Hgb 12.2 g/dL (11.2-15.7) 01/31/21 08:09 Hct 36.8 % (36.0-46.0) 01/31/21 08:09 Abnormal Lab Findings: Abnormal Labs 01/31/21 08:09 WBC 16.32 H MPV 12.9 H
--- NOTE | 2021-02-01 03:52 | NUR.NOTE ---
0120 pt reported to RN she felt a huge gush of blood. Pt had changed pad just before she felt gush. RN was able to express numerous clots, 100cc. Fundus is firm. U-1 before clots expressed. U-2 after clots expressed. SHEFALI Stallworth paged, CNM called center immediately and instructed RN to admister methergine and call CNM if any further bleeding. 0130 Methergine given, 0137 RN expressed large amount of clots, fundus boggy, became firm with fundal massage, then quickly became boggy again, RN continuing to express clots and perform fundal massage until MD telephone sales agent arrived at bedside @ 0151. CNM paged and en route at this time. 0151 2nd bag of pp pit wide open, melvin catheter placed, txa charan, 2nd iv placed. 0153 250mcg hemabate and 800mcg cytotec placed rectally. 0215 3rd bag of pit hung@ 95ml/hr, pt stable. Note:
[2021-02-01] MEDS: Acetaminophen 325 MG TAB 650 MG PO (06:36)
[2021-02-01] MEDS: Ibuprofen 600 MG TAB PO ×2 (06:37→19:49)
[2021-02-01 06:52] LABS: HGB 10.4 g/dL (11.2-15.7); MCH 26.5 pg (27.0-33.0); MCHC 31.5 % (32.0-36.0); MCV 84.2 fL (80-95); MPV 12.9 fL (8.0-11.0); Platelet Count 161 10^3/uL (130-400); RBC 3.92 10^6/uL (3.93-5.22); RDW 13.4 % (11.7-14.6); RDW-SD 41.4 fL; WBC 20.57 10^3/uL (4.4-10.8)
--- NOTE | 2021-02-01 07:11 | W.PM.OBPNV1 ---
Date of service: 02/01/21 Time of Service: 07:11 Assessment and Plan Assessment and plan (1) care following vaginal delivery: Status: Acute Assessment and plan: continue present management (2) Lactating mother: Status: Acute Assessment and plan: continue present management (3) hemorrhage: Status: Acute Assessment and plan: stable at this time Qualifiers: hemorrhage type: delayed hemorrhage Qualified Code(s): O72.2 - Delayed and secondary hemorrhage Subjective Subjective Interval history: Has been out of bed to chair and tolerated well. Reports no further gushes of blood vaginally and continues to have cramping that is strong. Is , has flat nipples and will likely use nipple phan. Was able to sleep for several hours. baby status: Doing well feeding status: Exclusively breast feeding Narrative: If baby did get formula, it is due to PPH and patient's inability to breastfeed last night, her intention is to breast feed. Exam Physical Exam Vital signs: Temp Pulse Resp BP Pulse Ox 97.9 F 89 18 111/62 100 01/31/21 18:12 02/01/21 05:54 01/31/21 10:53 02/01/21 05:54 01/31/21 20:42 Vital Signs Reviewed: Yes Constitutional Constitutional: no acute distress Comments: Is hoping to have melvin removed. Flight Radio Operator reviewed that if she is able to tolerate walking to BR without symptoms of hypovolemia, she can have melvin removed. Reviewed with Dr. Belle who agrees to this plan of care. HEENT Exam HEENT Exam: Normal Respiratory Exam Respiratory Exam: Normal Cardiovascular Exam Cardiovascular Exam: Normal (VSS and continues to not be tachycardic) Abdominal Exam Abdomen: Tender (fundus tender to palpation due to vigorous massage with PPH but not as uncomfortable as last night) Fundal Exam Fundus: Below Umbilicus and Firm Rectal Exam Rectal Exam: Not Done Exam Patient deferred: external exam Perineum: Edematous (mildly edematous) and Repair Intact Extremities Exam Extremity Exam: Normal and Edema Comment: Edema in hands and lower extremities is 1+ Skin Exam Skin Exam: Normal Neurological Exam Neurological Exam: Normal Psychiatric Exam Psychiatric Exam: Normal Results Hemoglobin/Hematocrit: Hgb 10.4 g/dL (11.2-15.7) L 02/01/21 06:45 Hct 33.0 % (36.0-46.0) L 02/01/21 06:45 Abnormal Lab Findings: Abnormal Labs 01/31/21 02/01/21 08:09 06:45 WBC 16.32 H 20.57 H RBC 3.92 L Hgb 10.4 L Hct 33.0 L MCH 26.5 L MCHC 31.5 L MPV 12.9 H 12.9 H
[2021-02-01] MEDS: Ferrous Sulfate 325 MG TAB PO (19:50)
[2021-02-02 07:15] LABS: HCT 28.8 % (36.0-46.0); MCH 27.1 pg (27.0-33.0); MCHC 31.3 % (32.0-36.0); MCV 86.7 fL (80-95); MPV 12.1 fL (8.0-11.0); Platelet Count 146 10^3/uL (130-400); RBC 3.32 10^6/uL (3.93-5.22); RDW 13.8 % (11.7-14.6); RDW-SD 43.1 fL; WBC 12.15 10^3/uL (4.4-10.8)
[2021-02-02 07:25] VITALS: BP 115/76; PULSE 98; RESP 16; TEMP 36.9; O2SAT 98
[2021-02-02] MEDS: Ferrous Sulfate 325 MG TAB PO (08:00)
[2021-02-02] MEDS: Docusate Sodium 100 MG CAP PO (08:00)
--- NOTE | 2021-02-02 09:33 | W.PM.OBPNV1 ---
Date of service: 02/02/21 Time of Service: 08:25 Assessment and Plan Assessment and plan (1) Lactating mother: Status: Acute Assessment and plan: continue present management (2) care following vaginal delivery: Status: Acute Assessment and plan: continue present management, plan discharge to home today (3) hemorrhage: Status: Acute Assessment and plan: stable, discussed need to allow time for rebuilding of blood and importance of rest and hydration. Qualifiers: hemorrhage type: delayed hemorrhage Qualified Code(s): O72.2 - Delayed and secondary hemorrhage (4) Acute blood loss anemia: Status: Acute Assessment and plan: will continue to take ferrous sulfate. Subjective Subjective Interval history: Desires discharge to home today if possible. Is able to be out of bed without difficulty. OMID Patient comments: Pain well controlled baby status: Doing well, Nursing well and Rooming in feeding status: Exclusively breast feeding Exam Physical Exam Vital signs: Temp Pulse Resp BP Pulse Ox 98.4 F 98 H 16 115/76 98 02/02/21 07:25 02/02/21 07:25 02/02/21 07:25 02/02/21 07:25 02/02/21 07:25 Vital Signs Reviewed: Yes Constitutional Constitutional: no acute distress HEENT Exam HEENT Exam: Normal Respiratory Exam Respiratory Exam: Normal Cardiovascular Exam Cardiovascular Exam: Normal Abdominal Exam Abdomen: Tender (tender below umbilicus as this is site of prolonged fundal massage after PPH) Fundal Exam Fundus: Below Umbilicus and Firm Rectal Exam Rectal Exam: Not Done Exam Patient deferred: perineal exam Perineum: Repair Intact Extremities Exam Extremity Exam: Edema (1+ bilaterally) and Full ROM Skin Exam Skin Exam: Normal Neurological Exam Neurological Exam: Normal Psychiatric Exam Psychiatric Exam: Normal Results Hemoglobin/Hematocrit: Hgb 9.0 g/dL (11.2-15.7) L 02/02/21 06:50 Hct 28.8 % (36.0-46.0) L 02/02/21 06:50 Abnormal Lab Findings: Abnormal Labs 01/31/21 02/01/21 02/02/21 08:09 06:45 06:50 WBC 16.32 H 20.57 H 12.15 H D RBC 3.92 L 3.32 L Hgb 10.4 L 9.0 L Hct 33.0 L 28.8 L MCH 26.5 L MCHC 31.5 L 31.3 L MPV 12.9 H 12.9 H 12.1 H
== END 2021-02-02 12:30 | disposition home or self-care (01) | DRG 806 ==
PROVIDERS: Advanced Practice Midwife; Admitting Provider Advanced Practice Midwife; PCP Nurse Practitioner; Visit Provider Advanced Practice Midwife
DX: O62.2 Other uterine inertia (principal); O72.2 Delayed and secondary postpartum hemorrhage; Z37.0 Single live birth; D62 Acute posthemorrhagic anemia; Z3A.40 40 weeks gestation of pregnancy; O70.0 First degree perineal laceration during delivery; Z20.822 Contact with and (suspected) exposure to COVID-19; O90.81 Anemia of the puerperium
CPT/HCPCS: 36415; 85027; 86850; 86900; 86901; 87635; J2210; J2405; J3490

== ENCOUNTER 2021-02-03 11:00 | Inpatient (IN) | payer OTHER, SELFPAY ==
[2021-02-03] VITALS (9 sets, daily range): BP systolic 76–117; BP diastolic 40–73; PULSE 93–140; RESP 16–18; TEMP 36.8–39.8; O2SAT 97–100
--- NOTE | 2021-02-03 | DI.RAD_ITS ---
EXAM: XR PORTABLE CHEST AP CLINICAL HISTORY: Post fever. TECHNIQUE: 2D digital imaging was performed. COMPARISON: No exams were available for comparison FINDINGS: Heart size is normal. The mediastinum is not widened. Lungs are clear. No infiltrates nor obvious pleural effusions. IMPRESSION: No acute pulmonary findings on this single AP portable view of the chest. DATA REPOSITORY: RADIATION DOSE DELIVERED:
[2021-02-03 11:49] LABS: Abs Immature Grans 0.14 10^3/uL (0.0-0.06); HCT 28.1 % (36.0-46.0); MCH 27.5 pg (27.0-33.0); MCV 85.9 fL (80-95); MPV 11.8 fL (8.0-11.0); Nucleated RBC 0 %; RBC 3.27 10^6/uL (3.93-5.22); RDW 13.7 % (11.7-14.6); RDW-SD 42.7 fL; WBC 16.46 10^3/uL (4.4-10.8)
[2021-02-03 12:02] LABS: Absolute Eosinophil Count 0.16 10^3/uL (0.0-0.7); Absolute Lymphocyte Count 1.15 10^3/uL (1.2-3.4); Absolute Monocyte Count 0.49 10^3/uL (0.1-0.8); Absolute Neutrophil Count 14.48 10^3/uL (1.2-6.7); Bands % 3
[2021-02-03 12:03] LABS: Diff Comment Manual Differential; Myelocytes % 1; Platelet Count 172 10^3/uL (130-400); RBC Morphology Normal
[2021-02-03 12:04] LABS: ALT 18 U/L (14-59); AST 14 U/L (15-37); Albumin 2.3 g/dL (3.4-5.0); Alkaline Phosphatase 129 U/L (46-116); Anion Gap 9.3 mmol/L (3-11); BUN 7 mg/dL (7-18); Bilirubin, Total 0.2 mg/dL (0.2-1.0); CO2 25.7 mmol/L (21.0-32.0); CREATININE 0.7 mg/dL (0.55-1.02); Calcium 8.8 mg/dL (8.5-10.1); Chloride 104 mmol/L (98-107); Glucose 75 mg/dL (74-106); Potassium 3.6 mmol/L (3.5-5.1); Sodium 139 mmol/L (136-145); Total Protein 6.2 g/dL (6.4-8.2)
--- NOTE | 2021-02-03 12:41 | W.PM.OBHPL1 ---
Date of service: 02/03/21 Time of Service: 12:41 Assessment and Plan Assessment and plan (1) Acute blood loss anemia: Status: Acute Assessment and plan: Reviewed H/H are not so low as to require blood transfusion but that what she is feeling is also a factor. Patient reports she does not believe fatigue is severe and reports pain as her major concern, specifically cramping and back pain. KH (2) care following vaginal delivery: Status: Acute Assessment and plan: Lab values stable and have been reviewed with Dr. Yoshi MD agrees that this is likely related to her PP anemia and the necessary aggressive fundal massage required a few hours after delivery. Will begin with Ibuprofen PO to address pain and reassess. KH OB-HPI Labor/Delivery History of Present Illness Reason for Visit: POSTPARTUN HEMORRHAGE Chief Complaint: Other. [place] Calculator Estimated Delivery Date Method Current WG Current Estimate 01/31/21 LMP (Certain) 40w 3d Other Estimates 01/29/21 Ultrasound #1 40w 5d Comments: PP day 3 after NVD followed by delayed PPH of approximately 1700 cc blood loss which was managed with Pitocin IV, Methergine IM, Cytotec rectally and TXA as well as MD evacuation of lower uterine segment. Patient was present for weight check with baby and her and reported not feeling well. RN had notified MD business management consultant of patient's arrival and concern and MD had ordered triage assessment with VS and CBC / CMP. Motor Vehicles Supervisor was then notified by MD of patient arrival and initial verbal orders. Motor Vehicles Supervisor arrived shortly after to assess patient.KH History of Present Expected Delivery Route/Plan - CNM FOB/ - Jw Ledezma Varicella non-immune, offer vaccine Tub for labor, probably not delivery BB- Christopher GBS negative Specific Issues/Plan 1. LGA thus needs early gct.; result is 85 1a. 11/07/20 gct =180 gtt tab.al 1b. 11/15/20 3hr gtt: wnl x4. al 2. Risk increased for pph/shoulder dystocia d/t hx LGA infant. 3. Varicella non-immune 4. 11/07/20 Rhogam given. al- given at the Center- need documentation for the chart Review of Systems Constitutional Comments: abdominal cramping in pain that is worse with activity or breast feeding. Reports minimal lochia. Not controlled by tylenol. Eyes Eyes: Reports system reviewed and no additional complaints, except as documented ENT Ears, Nose, Mouth, and Throat: Reports system reviewed and no additional complaints, except as documented Cardiovascular Cardiovascular: Reports rapid heart rate Respiratory Respiratory: Reports system reviewed and no additional complaints, except as documented Genitourinary Genitourinary: Reports system reviewed and no additional complaints, except as documented Comments: normal lochia and occasional small blood clot size of dime Musculoskeletal Musculoskeletal: Reports muscle weakness Comments: feels weak when walking up stairs, legs can get shakyKH Integumentary/Breasts Skin/Breast: Reports system reviewed and no additional complaints, except as documented Comments: breast and bottle feeding without difficulty. Neurologic Neurologic: Reports system reviewed and no additional complaints, except as documented Psychiatric Comments: admits to feeling emotional, she reports she felt the same way after her first delivery for a few weeks. She is well kept, speech clear and appropriate, alert and oriented. Fatigued, but consistent with PP state and acute blood loss anemia. Hematologic/Lymphatic Comments: NO bruising or excessive vaginal bleeding.[facility] Medical History (Updated 02/02/21 @ 09:36 by Shelley Martinez CNM) Positive test hemorrhage Surgical History (Updated 07/20/20 @ 10:44 by Cristian Salcido CNM) S/P left knee surgery Tonsillectomy 06/2013 Tooth extraction [place] teeth Family History Mother Essential hypertension Father Essential hypertension Social History Smoking/Tobacco Use Status: Never Smoking risk assessment performed?: Yes Alcohol Intake: current Alcohol Intake frequency: a few times a month Counseling provided: other Drug use: Never Counseling provided: other Details: stopped for Adopted: No Foster care: No 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 What is your relationship status?: Panel score (0-1 are the most socially isolated patients): 1 Seatbelt use: always Helmet use: Yes Drive intox or ride w/intox driver education road instructor: No Water heater temp set <120 deg: Yes Working smoke detector in home: Yes Fire extinguisher in home: Yes Carbon monox detector in home: Yes Firearms in home: Yes Do you feel safe at home: Yes Victim of physical abuse: No Victim of emotional abuse: No Victim of sexual abuse: No Female Reproductive History Menstrual control method: condoms History History 2 Para 1 Hx # Term Pregnancies 1 Multiple births 0 Hx # Pregnancies 0 Ectopic pregnancies 0 AB induced 0 Hx Number of Living Children 1 AB spontaneous 0 Past Pregnancies Del. Date GA/Weeks # Outcome Route Wgt Sex Labor Lgth Anesthesia Location Prov Complic 07/19/18 40 No Successful vaginal 9 lb 13 oz Male [facility] Delivery Date: 07/19/18 Epidural. Pitocin and methergine for clotting. EBL 400cc. Shelley Kaur Meds Home Medications and Allergies Allergies Allergy/AdvReac Type Severity Reaction Status Date / Time amoxicillin Allergy SKIN RASH Verified 02/03/21 12:53 clavulanic acid Allergy UNKNOWN Verified 02/03/21 12:53 codeine AdvReac Intermediate kept her Verified 02/03/21 12:53 awake for 48 hrs Home Medications Medication Instructions Recorded Confirmed Type prenat.vits,percy,ghl-[id number] 1 tab PO DAILY #30 tab 07/20/18 02/03/21 Rx ferrous sulfate 325 mg (65 mg 325 mg PO BID #90 tab 11/07/20 02/03/21 Rx iron) tablet breast pump #1 ea 01/15/21 01/31/21 Rx Exam Physical Exam Vital signs: Temp Pulse Resp BP Pulse Ox 98.2 F 114 H 16 115/70 100 02/03/21 11:44 02/03/21 11:44 02/03/21 11:44 02/03/21 11:44 02/03/21 11:44 Vital Signs Reviewed: Yes Constitutional Constitutional: mild distress Comments: Feels pain in her abdominal area that radiates to her back. Worse with fundal massage and or nursing baby.KH Detailed Labor and Delivery Exam Barrios Score: Cervical Points Exam 0 1 2 3 Dilation Closed 1-2cm 3-4 cm 5-6cm Effacement 0-30% 40-50% 60-70% 80% Consistency Firm Medium Soft Station -3 -2 -1,0 +1,+2 Position Posterior Mid Anterior Results Abnormal Lab Findings: Abnormal Labs 02/03/21 02/03/21 11:40 11:40 WBC 16.46 H RBC 3.27 L Hgb 9.0 L Hct 28.1 L MPV 11.8 H Absolute Neutrophils 14.48 H Absolute Lymphocytes 1.15 L AST 14 L Alkaline Phosphatase 129 H Total Protein 6.2 L Albumin 2.3 L Risk Assessment Risk for Shoulder Dystocia Historical/Initial OB: POSITIVE FOR: Previous Macrosomia (1st born was 9lbs 13 oz will need early gct. al); NEGATIVE FOR: Pelvic Abnormality, Pre- BMI>30 or Previous Shoulder Dystocia 40 Weeks: NEGATIVE FOR: EFW> 4500 gms, Maternal Weight Gain >40lb or Post Dates Delivery Plan @ 40 wks: proven to Risk for Pre-Eclampsia Date Initiated/Initials: 07/20/20 al Yes, if one or more: NEGATIVE FOR: Hx Pre-E/Gest HTN, Chronic HTN, Multiple Gestation, Pre-gestational DM, Renal Disease, Systemic Lupus or APA Syndrome Yes, if 2 or more: POSITIVE FOR: Mother/Sister w/ Pre-E; NEGATIVE FOR: Nulliparity, Age>= 35 yrs, >10yr btwn pregnancies, BMI>30, ethinicty or Previous IUGR Risk for Post- Hemorrhage Initial: POSITIVE FOR: Previous PPH (pt states needed miso & sweep of lower uterine seg. EBL documented @ 400 ml); NEGATIVE FOR: Multiple Gestation, Known Clotting Deficiency, Grand Multiparity or Anticoagulation Counseled re: Active Management: Yes Date/Initials: nml 3 hr GTT @ 29 wks, hx LGA fetus Risks Reviewed Risks Reviewed Upon Admission: Yes
[2021-02-03] MEDS: Ibuprofen 600 MG TAB PO (12:54)
--- NOTE | 2021-02-03 13:55 | W.PM.PROGNOT ---
Date of Service Date of service: 02/03/21 Time of Service: 13:55 Assessment and Plan Assessment and plan (1) Endometritis following delivery: Start date: 02/03/21 Start time: 14:00 Status: Acute Assessment and plan: admit to inpatient and will begin IV antibiotics per consult with . OMID Subjective Subjective Interval history since last seen: pateint reported cramping is better but back pain is not relieved with ibuprofen. At same time RN takes temp axillary as previous temp was done orally and patient had been drinking cold water. Temp 101.5 axilary. Clinical Trial Coordinator does telephone consult with MD who states patient should be admitted and treated with Gent 5 mg/kg every 24 hours and Gentamicin 900 mg IV every 8 hours as well as repeat CBC with diff in am. OMID Exam Narrative Exam Narrative: consistent with H&P in past 2 hours, only change is febrile state with temp 101.5f. Objective Last Vital Signs Temp 101.5 F H 02/03/21 13:36 Pulse 114 H 02/03/21 11:44 Resp 16 02/03/21 11:44 BP 115/70 02/03/21 11:44 Pulse Ox 100 02/03/21 11:44 Laboratory Results - last 24 hr 02/03/21 02/03/21 11:40 11:40 WBC 16.46 H RBC 3.27 L Hgb 9.0 L Hct 28.1 L MCV 85.9 MCH 27.5 MCHC 32.0 RDW 13.7 Plt Count 172 MPV 11.8 H Immature Gran % See Differential Neutrophils % 85.0 Band Neutrophils % 3 Lymphocytes % 7.0 Monocytes % 3.0 Eosinophils % 1.0 Basophils % 0.0 Myelocytes % 1 Nucleated RBC % 0 Absolute Neutrophils 14.48 H Absolute Lymphocytes 1.15 L Absolute Monocytes 0.49 Absolute Eosinophils 0.16 Absolute Basophils 0.00 RBC Morphology Normal Sodium 139 Potassium 3.6 Chloride 104 Carbon Dioxide 25.7 Anion Gap 9.3 BUN 7 Creatinine 0.7 Estimated GFR/1.73 m2 >= 60.00 Glucose 75 Calcium 8.8 Total Bilirubin 0.2 AST 14 L ALT 18 Alkaline Phosphatase 129 H Total Protein 6.2 L Albumin 2.3 L
[2021-02-03] MEDS: Lactated Ringers 1,000 ML 30 ML IV (15:00)
[2021-02-03] MEDS: CLINDAMYCIN 900 MG/50 ML BAG 50 MG IVPB (15:40)
[2021-02-03] MEDS: Acetaminophen 325 MG TAB 650 MG PO ×2 (16:41→20:49)
[2021-02-03 17:32] LABS: Source Nasal/Nares
[2021-02-03 18:10] LABS: COVID-19 PCR Negative (Negative)
[2021-02-03] MEDS: Milk of Magnesia 30 ML CUP PO (18:19)
--- NOTE | 2021-02-03 18:19 | W.OBCONSULT ---
Date of service: 02/03/21 Time of Service: 18:20 Assessment and Plan Assessment and plan (1) Endometritis following delivery: Status: Acute Assessment and plan: Iv hydration. IV antibiotic therapy until afebrile x 24 hours. Covid test today. Repeat labs in AM (2) Acute blood loss anemia: Status: Acute Assessment and plan: Stable HGB (3) Lactating mother: Status: Acute Assessment and plan: Baby to breast. Pump as needed. Supplement as needed due to decreased production as patient recovers (4) care following vaginal delivery: Status: Acute History of Present Illness History of Present Illness Chief Complaint: Post fever, suspect endometritis Narrative: Madison is post day #3 s/p complicated by post hemorrhage. She had a normal labor with ROM< 12 hours, GBS negative. She was monitored for 48 hours post and d/c'd home yesterday. She re-presented to the center feeling poorly with increased cramping, moderate lochia, and general malaise. Labs revieled an elevated WBC and fever. She is admitted for presumptive endometritis for IV hydration, IV antibiotics, and pain control. She had been breast feeding and supplementing with formula Consults Consult date: 02/03/21 Requesting physician: Shelley Martinez Review of Systems All systems reviewed & are unremarkable except as noted in HPI and below Constitutional Constitutional: Reports body ache(s), Reports chills, Reports difficulty sleeping, Reports fatigue, Reports fever(s), Reports headache(s), Reports malaise and Reports poor appetite Eyes Eyes: Denies blurry vision and Denies change in vision ENT Ears, Nose, Mouth, and Throat: Reports headache(s) Cardiovascular Cardiovascular: Reports system reviewed and no additional complaints, except as documented, Denies chest pain, Reports rapid heart rate, Denies irregular heart rhythm and Denies dyspnea Respiratory Respiratory: Reports system reviewed and no additional complaints, except as documented, Denies chest congestion, Denies cough and Denies dyspnea Gastrointestinal Gastrointestinal: Reports abdominal pain, Denies constipation, Denies diarrhea and Denies vomiting Genitourinary Genitourinary: Reports as per HPI Comments: Cramping with increased lochia Musculoskeletal Musculoskeletal: Reports back pain and Reports myalgias Integumentary/Breasts Skin/Breast: Denies breast pain Neurologic Neurologic: Reports system reviewed and no additional complaints, except as documented and Reports headache(s) Psychiatric Psychiatric: Reports anxiety (related to post state) Endocrine Endocrine: Reports fatigue Hematologic/Lymphatic Hematologic/Lymphatic: Reports system reviewed and no additional complaints, except as documented PFSH Medical History (Updated 02/03/21 @ 13:59 by Shelley Martinez CNM) Positive test hemorrhage Surgical History (Updated 07/20/20 @ 10:44 by Cristian Salcido CNM) S/P left knee surgery Tonsillectomy 06/2013 Tooth extraction [place] teeth Family History Mother Essential hypertension Father Essential hypertension Social History Smoking/Tobacco Use Status: Never Smoking risk assessment performed?: Yes Alcohol Intake: current Alcohol Intake frequency: a few times a month Counseling provided: other Drug use: Never Counseling provided: other Details: stopped for Adopted: No Foster care: No 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 What is your relationship status?: Panel score (0-1 are the most socially isolated patients): 1 Seatbelt use: always Helmet use: Yes Drive intox or ride w/intox armor reconnaissance vehicle driver: No Water heater temp set <120 deg: Yes Working smoke detector in home: Yes Fire extinguisher in home: Yes Carbon monox detector in home: Yes Firearms in home: Yes Do you feel safe at home: Yes Victim of physical abuse: No Victim of emotional abuse: No Victim of sexual abuse: No Female Reproductive History Menstrual control method: condoms History History 2 Para 1 Hx # Term Pregnancies 1 Multiple births 0 Hx # Pregnancies 0 Ectopic pregnancies 0 AB induced 0 Hx Number of Living Children 1 AB spontaneous 0 Past Pregnancies Del. Date GA/Weeks # Outcome Route Wgt Sex Labor Lgth Anesthesia Location Prov Complic 07/19/18 40 No Successful vaginal 9 lb 13 oz [facility] Delivery Date: 07/19/18 Epidural. Pitocin and methergine for clotting. EBL 400cc. Shelley Kaur Exam Const General: cooperative, anxious and ill appearing Nutritional Appearance: average body habitus and well nourished Orientation: alert and oriented x3 Eyes General: appearance normal, both eyes and all related structures Chest Breast inspection: normal inspection of the breasts Resp Effort & Inspection: normal respiratory effort Auscultation: clear to auscultation bilaterally Cardio Rate: tachycardic Rhythm: regular rhythm GI Inspection: normal to inspection Palpation: no masses Other: Uterus firm, below the uterus Skin General skin exam: no rashes or lesions noted Neuro General: patient alert, patient awake and patient oriented x3 Cranial Nerves: CN's II-XI intact bilaterally Cognition: normal cognition Speech: speech normal Gait: normal gait Extrem General: normal to inspection, no calf tenderness and edema (1+) Laterality: bilateral Psych Appearance: grossly normal and well kempt Mental Status: mental status grossly normal Speech and Movement: speech and movement normal Mood: congruent mood Affect: sad Attitude: cooperative Thought Process: normal Thought Content: normal Insight: insight good Judgment: judgment good Results Last Vital Signs Temp 100.9 F H 02/03/21 16:32 Pulse 111 H 02/03/21 16:32 Resp 16 02/03/21 16:32 BP 100/55 L 02/03/21 16:32 Pulse Ox 100 02/03/21 11:44 Labs Result diagrams: 02/03/21 11:40 02/03/21 11:40 Labs: Laboratory Results - last 24 hr 02/03/21 02/03/21 02/03/21 11:40 11:40 13:47 WBC 16.46 H RBC 3.27 L Hgb 9.0 L Hct 28.1 L MCV 85.9 MCH 27.5 MCHC 32.0 RDW 13.7 Plt Count 172 MPV 11.8 H Immature Gran % See Differential Cancelled Neutrophils % 85.0 Cancelled Band Neutrophils % 3 Cancelled Lymphocytes % 7.0 Cancelled Atypical Lymphs % Cancelled Monocytes % 3.0 Cancelled Eosinophils % 1.0 Cancelled Basophils % 0.0 Cancelled Metamyelocytes % Cancelled Myelocytes % 1 Cancelled Promyelocytes % Cancelled Other Cells % Cancelled Nucleated RBC % 0 Absolute Neutrophils 14.48 H Cancelled Absolute Lymphocytes 1.15 L Cancelled Absolute Monocytes 0.49 Cancelled Absolute Eosinophils 0.16 Cancelled Absolute Basophils 0.00 Cancelled RBC Morphology Normal Cancelled Polychromasia Cancelled Hypochromasia Cancelled Poikilocytosis Cancelled Basophilic Stippling Cancelled Anisocytosis Cancelled Microcytosis Cancelled Macrocytosis Cancelled Spherocytes Cancelled Tear Drop Cells Cancelled Ovalocytes Cancelled Stomatocytes Cancelled Ball-[place] Bodies Cancelled Sara Cells/Echinocytes Cancelled Acanthocytes (Spur) Cancelled Schistocytes Cancelled Sodium 139 Potassium 3.6 Chloride 104 Carbon Dioxide 25.7 Anion Gap 9.3 BUN 7 Creatinine 0.7 Estimated GFR/1.73 m2 >= 60.00 Glucose 75 Calcium 8.8 Total Bilirubin 0.2 AST 14 L ALT 18 Alkaline Phosphatase 129 H Total Protein 6.2 L Albumin 2.3 L COVID-19 Source SARS-CoV-2 (PCR) 02/03/21 02/03/21 17:10 17:22 WBC RBC Hgb Hct MCV MCH MCHC RDW Plt Count MPV Immature Gran % Neutrophils % Band Neutrophils % Lymphocytes % Atypical Lymphs % Monocytes % Eosinophils % Basophils % Metamyelocytes % Myelocytes % Promyelocytes % Other Cells % Nucleated RBC % Absolute Neutrophils Absolute Lymphocytes Absolute Monocytes Absolute Eosinophils Absolute Basophils RBC Morphology Polychromasia Hypochromasia Poikilocytosis Basophilic Stippling Anisocytosis Microcytosis Macrocytosis Spherocytes Tear Drop Cells Ovalocytes Stomatocytes Ball-[place] Bodies [place] Cells/Echinocytes Acanthocytes (Spur) Schistocytes Sodium Potassium Chloride Carbon Dioxide Anion Gap BUN Creatinine Estimated GFR/1.73 m2 Glucose Calcium Total Bilirubin AST ALT Alkaline Phosphatase Total Protein Albumin COVID-19 Source Nasal/nares Cancelled SARS-CoV-2 (PCR) Cancelled
[2021-02-03] MEDS: Lactated Ringers 1,000 ML 1000 ML IV (19:45)
--- NOTE | 2021-02-03 19:59 | W.PM.PROGNOT ---
Date of Service Date of service: 02/03/21 Time of Service: 19:59 Assessment and Plan Assessment and plan (1) Endometritis following delivery: Status: Acute Assessment and plan: ELevated temp. Will broaden antibiotic coverage by adding flagy, sepsis workup including CBC, CMP, Lactate, blood cultures, C-xray, Urinalysis. FLuid bolus. Accurate I&O, hourly VS, SCD stockings. Rest (2) Acute blood loss anemia: Status: Acute (3) Lactating mother: Status: Acute (4) care following vaginal delivery: Status: Acute Subjective Subjective Patient reports: tolerating liquids well and fever; denies diarrhea, vomiting and shortness of breath Interval history since last seen: Called to see patient with elevated temp to 103.3. Will assume care from the [facility] service. Exam Const General: cooperative, in distress, diaphoretic and ill appearing Nutritional Appearance: average body habitus Orientation: alert and oriented x3 Eyes General: appearance normal, both eyes and all related structures Neck Neck: normal visual inspection Resp Effort & Inspection: normal respiratory effort and able to speak in complete sentences Auscultation: clear to auscultation bilaterally, no crackles, no rales, no rhonchi and no wheezes Percussion: percussion normal Cardio Palpation: normal PMI Rate: tachycardic Rhythm: regular rhythm Heart Sounds: S1 normal, S2 normal and no murmurs GI Inspection: normal to inspection Palpation: soft, not firm, no guarding, no masses and not rigid Other: Fundus firm, below the umbilicus, minimal tenderness Back/Spine/Pelvis Thoracic/Lumbar Spine: lumbar spinal tenderness Skin General skin exam: no rashes or lesions noted Neuro General: patient alert and patient oriented x3 Cognition: normal cognition Speech: speech normal Extrem General: normal to inspection, no calf tenderness and edema (1+) Laterality: bilateral Psych Appearance: grossly normal and well kempt Mood: congruent mood and anxious mood Affect: normal affect Attitude: cooperative Thought Process: normal Thought Content: normal Insight: insight good Judgment: judgment good Objective Last Vital Signs Temp 103.6 F H 02/03/21 19:12 Pulse 140 H 02/03/21 19:12 Resp 16 02/03/21 16:32 BP 100/55 L 02/03/21 16:32 Pulse Ox 100 02/03/21 11:44 Laboratory Results - last 24 hr 02/03/21 02/03/21 02/03/21 11:40 11:40 13:47 WBC 16.46 H RBC 3.27 L Hgb 9.0 L Hct 28.1 L MCV 85.9 MCH 27.5 MCHC 32.0 RDW 13.7 Plt Count 172 MPV 11.8 H Immature Gran % See Differential Cancelled Neutrophils % 85.0 Cancelled Band Neutrophils % 3 Cancelled Lymphocytes % 7.0 Cancelled Atypical Lymphs % Cancelled Monocytes % 3.0 Cancelled Eosinophils % 1.0 Cancelled Basophils % 0.0 Cancelled Metamyelocytes % Cancelled Myelocytes % 1 Cancelled Promyelocytes % Cancelled Other Cells % Cancelled Nucleated RBC % 0 Absolute Neutrophils 14.48 H Cancelled Absolute Lymphocytes 1.15 L Cancelled Absolute Monocytes 0.49 Cancelled Absolute Eosinophils 0.16 Cancelled Absolute Basophils 0.00 Cancelled RBC Morphology Normal Cancelled Polychromasia Cancelled Hypochromasia Cancelled Poikilocytosis Cancelled Basophilic Stippling Cancelled Anisocytosis Cancelled Microcytosis Cancelled Macrocytosis Cancelled Spherocytes Cancelled Tear Drop Cells Cancelled Ovalocytes Cancelled Stomatocytes Cancelled Ball-[place] Bodies Cancelled Sara Cells/Echinocytes Cancelled Acanthocytes (Spur) Cancelled Schistocytes Cancelled Sodium 139 Potassium 3.6 Chloride 104 Carbon Dioxide 25.7 Anion Gap 9.3 BUN 7 Creatinine 0.7 Estimated GFR/1.73 m2 >= 60.00 Glucose 75 Calcium 8.8 Total Bilirubin 0.2 AST 14 L ALT 18 Alkaline Phosphatase 129 H Total Protein 6.2 L Albumin 2.3 L COVID-19 Source SARS-CoV-2 (PCR) 02/03/21 02/03/21 17:10 17:22 WBC RBC Hgb Hct MCV MCH MCHC RDW Plt Count MPV Immature Gran % Neutrophils % Band Neutrophils % Lymphocytes % Atypical Lymphs % Monocytes % Eosinophils % Basophils % Metamyelocytes % Myelocytes % Promyelocytes % Other Cells % Nucleated RBC % Absolute Neutrophils Absolute Lymphocytes Absolute Monocytes Absolute Eosinophils Absolute Basophils RBC Morphology Polychromasia Hypochromasia Poikilocytosis Basophilic Stippling Anisocytosis Microcytosis Macrocytosis Spherocytes Tear Drop Cells Ovalocytes Stomatocytes Ball-[place] Bodies Sara Cells/Echinocytes Acanthocytes (Spur) Schistocytes Sodium Potassium Chloride Carbon Dioxide Anion Gap BUN Creatinine Estimated GFR/1.73 m2 Glucose Calcium Total Bilirubin AST ALT Alkaline Phosphatase Total Protein Albumin COVID-19 Source Nasal/nares Cancelled SARS-CoV-2 (PCR) Negative Cancelled
--- NOTE | 2021-02-03 20:08 | DI.VRAD_ITS ---
PROCEDURE INFORMATION: Exam: XR Chest Exam date and time: 02/03/2021 8:04 PM Age: 25 years old Clinical indication: Patient HX: Post- fever TECHNIQUE: Imaging protocol: XR of the chest Views: 1 view. COMPARISON: No relevant prior studies available. FINDINGS: Lungs: Lungs are adequately inflated and symmetric. No focal consolidation or pulmonary edema. Pleural spaces: No pleural effusion. No pneumothorax. Heart/Mediastinum: Cardiomediastinal contours within normal limits. Bones/joints: No acute osseous finding. IMPRESSION: No acute cardiopulmonary finding. Dictated and Authenticated by: Jw Vivar MD. Ordering:DANA Jenkins MD
[2021-02-03 20:35] LABS: Abs Immature Grans 0.25 10^3/uL (0.0-0.06); Absolute Basophil Count 0.01 10^3/uL (0.0-0.2); Absolute Eosinophil Count 0.07 10^3/uL (0.0-0.7); Absolute Monocyte Count 0.48 10^3/uL (0.1-0.8); Basophils % 0.1; Eosinophils % 0.5; HCT 26.8 % (36.0-46.0); HGB 8.5 g/dL (11.2-15.7); Immature Grans % 1.8; MCH 27.3 pg (27.0-33.0); MCHC 31.7 % (32.0-36.0); MCV 86.2 fL (80-95); MPV 12.6 fL (8.0-11.0); Monocytes % 3.4; Neutrophils % 89.2; Nucleated RBC 0 %; Platelet Count 151 10^3/uL (130-400); RBC 3.11 10^6/uL (3.93-5.22); RDW 13.9 % (11.7-14.6); RDW-SD 43.2 fL; WBC 14.09 10^3/uL (4.4-10.8)
[2021-02-03 20:42] LABS: Absolute Neutrophil Count 12.57 10^3/uL (1.2-6.7)
[2021-02-03 20:46] LABS: Lactate 2.8 mmol/L (0.6-1.4)
[2021-02-03 20:49] LABS: ALT 21 U/L (14-59); AST 16 U/L (15-37); Albumin 2.3 g/dL (3.4-5.0); Alkaline Phosphatase 131 U/L (46-116); Anion Gap 13.7 mmol/L (3-11); BUN 9 mg/dL (7-18); Bilirubin, Total 0.3 mg/dL (0.2-1.0); C-Reactive Protein 9.33 mg/dL (0.0-0.3); CO2 22.3 mmol/L (21.0-32.0); CREATININE 0.9 mg/dL (0.55-1.02); Calcium 8.7 mg/dL (8.5-10.1); Chloride 103 mmol/L (98-107); Glucose 122 mg/dL (74-106); Potassium 3.2 mmol/L (3.5-5.1); Sodium 139 mmol/L (136-145); Total Protein 6.3 g/dL (6.4-8.2)
[2021-02-03] MEDS: Nalbuphine 10 MG/ML AMP 5 MG IV (20:49)
[2021-02-03 20:50] LABS: INR 0.9 (0.9-1.1); Prothrombin Time 9.4 sec (9.3-11.0)
[2021-02-03] MEDS: metroNIDAZOLE 500 MG/100 ML BAG 100 MG IVPB (20:50)
--- NOTE | 2021-02-03 21:12 | NUR.NOTE ---
Nursing Note:UA collected via clean catch
[2021-02-03 21:36] LABS: Bilirubin Negative (Negative); Blood Large (Negative); Clarity Cloudy (Clear); Glucose Negative (Negative); Ketones Negative (Negative); Leukocyte Esterase Small (Negative); Nitrite Negative (Negative); Specific Gravity 1.015 (1.005-1.025); Urobilinogen 0.2 EU/dL (Up TO 0.2); pH 5.5 (5-8)
[2021-02-03 21:52] LABS: Bacteria Few HPF (Negative); C & S Indicated? No/Sq. Contamination; Casts Negative LPF (Negative); Crystals Negative HPF (Negative); Epithelial Cells Moderate HPF (Negative); Mucus Negative (Negative); RBC >50 HPF (0-2)
[2021-02-03] MEDS: POTASSIUM CHLORIDE/0.9% NACL 1,000 ML 250 MEQ IV (22:44)
[2021-02-04] VITALS (7 sets, daily range): BP systolic 99–124; BP diastolic 59–83; PULSE 90–116; RESP 16; TEMP 36.7–38; O2SAT 96–100
[2021-02-04] MEDS: CLINDAMYCIN 900 MG/50 ML BAG 50 MG IVPB ×3 (01:07→16:25)
[2021-02-04] MEDS: Ibuprofen 600 MG TAB PO ×5 (01:07→20:00)
[2021-02-04] MEDS: Acetaminophen 325 MG TAB 650 MG PO ×6 (01:07→22:24)
[2021-02-04] MEDS: Nalbuphine 10 MG/ML AMP 5 MG IV (01:21)
--- NOTE | 2021-02-04 01:34 | NUR.NOTE ---
Nursing Note: 02/03/21@2100 Breast pump provided and pt pumping at this time.
--- NOTE | 2021-02-04 03:57 | NUR.NOTE ---
Nursing Note:[id number] Pt is awake and her baby.
[2021-02-04] MEDS: POTASSIUM CHLORIDE/0.9% NACL 1,000 ML 125 MEQ IV (04:13)
--- NOTE | 2021-02-04 04:21 | NUR.NOTE ---
Nursing Note:Pt looks and and states that she is feeling much better this morning, decreased back pain. Interacting and showing appropriate bonding with baby at this time.
--- NOTE | 2021-02-04 07:24 | PGE_ITS ---
Date of Service Date of service: 02/04/21 Time of Service: 07:25 Assessment and Plan Assessment and plan (1) Endometritis following delivery: Status: Acute Assessment and plan: Endometritis after vaginal delivery with post hemorrhage.. Temp of 100.4 at 2:30 AM. On triple therapy: Clindamycin 900 q8 (dose 3) Gentamycin q 24 (dose 1) Flagyl 500 q12 (dose 1). IV hydration. Pain control as needed. Await AM labs. Supportive care. Will continue IV antibiotics until afebrile 24 hours, then convert to PO. Will change admit to full. (2) Acute blood loss anemia: Status: Acute Assessment and plan: HGB stable at 8.5, with some dilutional affect. Asymptomatic currently. Will add Iron supplementation when GI function is improved (3) Lactating mother: Status: Acute Assessment and plan: Continue supportive care. Baby to breast and pumping PRN to maintan milk supply (4) care following vaginal delivery: Status: Acute (5) Hypokalemia: Status: Acute Assessment and plan: IV is NS with 20 meq Potassium. Labs pending for this AM Subjective Subjective Patient reports: feels better, pain is less and voiding w/o difficulty; denies vomiting and shortness of breath Interval history since last seen: Madison had a more restful night. Back pain and crampiness are significantly improved. Slept well. Exam Narrative Exam Narrative: Patient seen this AM. Resting. Recieving her 3rd dose of Clindamycin this AM. Recieved 1 dose of Gent, second dose due this afternoon. Flagyl will be BID dosing Const General: cooperative, comfortable, no acute distress and well hydrated Nutritional Appearance: average body habitus Orientation: alert and oriented x3 Eyes General: appearance normal, both eyes and all related structures Resp Effort & Inspection: normal respiratory effort Cardio Rate: tachycardic GI Inspection: normal to inspection Palpation: soft and no masses Skin General skin exam: no rashes or lesions noted Neuro General: patient alert and patient oriented x3 Extrem General: normal to inspection, no calf tenderness bilaterally and edema (1+) Objective Last Vital Signs Temp 98.2 F 02/04/21 04:18 Pulse 113 H 02/04/21 05:07 Resp 16 02/04/21 05:07 BP 109/66 02/04/21 05:07 Pulse Ox 96 02/04/21 05:07 Laboratory Results - last 24 hr 02/03/21 02/03/21 02/03/21 11:40 11:40 13:47 WBC 16.46 H RBC 3.27 L Hgb 9.0 L Hct 28.1 L MCV 85.9 MCH 27.5 MCHC 32.0 RDW 13.7 Plt Count 172 MPV 11.8 H Immature Gran % See Differential Cancelled Neutrophils % 85.0 Cancelled Band Neutrophils % 3 Cancelled Lymphocytes % 7.0 Cancelled Atypical Lymphs % Cancelled Monocytes % 3.0 Cancelled Eosinophils % 1.0 Cancelled Basophils % 0.0 Cancelled Metamyelocytes % Cancelled Myelocytes % 1 Cancelled Promyelocytes % Cancelled Other Cells % Cancelled Nucleated RBC % 0 Absolute Neutrophils 14.48 H Cancelled Absolute Lymphocytes 1.15 L Cancelled Absolute Monocytes 0.49 Cancelled Absolute Eosinophils 0.16 Cancelled Absolute Basophils 0.00 Cancelled RBC Morphology Normal Cancelled Polychromasia Cancelled Hypochromasia Cancelled Poikilocytosis Cancelled Basophilic Stippling Cancelled Anisocytosis Cancelled Microcytosis Cancelled Macrocytosis Cancelled Spherocytes Cancelled Tear Drop Cells Cancelled Ovalocytes Cancelled Stomatocytes Cancelled Ball-[place] Bodies Cancelled Sara Cells/Echinocytes Cancelled Acanthocytes (Spur) Cancelled Schistocytes Cancelled PT INR VBG Lactate Sodium 139 Potassium 3.6 Chloride 104 Carbon Dioxide 25.7 Anion Gap 9.3 BUN 7 Creatinine 0.7 Estimated GFR/1.73 m2 >= 60.00 Glucose 75 Calcium 8.8 Total Bilirubin 0.2 AST 14 L ALT 18 Alkaline Phosphatase 129 H C-Reactive Protein Total Protein 6.2 L Albumin 2.3 L Urine Color Urine Clarity Urine pH Ur Specific [place] Urine Protein Urine Ketones Urine Blood Urine Nitrite Urine Bilirubin Urine Urobilinogen Ur Leukocyte Esterase Urine RBC Urine WBC Ur Epithelial Cells Urine Crystals Urine Bacteria Urine Casts Urine Mucus Ur Culture Indicated? Urine Glucose COVID-19 Source SARS-CoV-2 (PCR) 02/03/21 02/03/21 02/03/21 17:10 17:22 20:10 WBC RBC Hgb Hct MCV MCH MCHC RDW Plt Count MPV Immature Gran % Neutrophils % Band Neutrophils % Lymphocytes % Atypical Lymphs % Monocytes % Eosinophils % Basophils % Metamyelocytes % Myelocytes % Promyelocytes % Other Cells % Nucleated RBC % Absolute Neutrophils Absolute Lymphocytes Absolute Monocytes Absolute Eosinophils Absolute Basophils RBC Morphology Polychromasia Hypochromasia Poikilocytosis Basophilic Stippling Anisocytosis Microcytosis Macrocytosis Spherocytes Tear Drop Cells Ovalocytes Stomatocytes [place] Bodies [place] Cells/Echinocytes Acanthocytes (Spur) Schistocytes PT INR VBG Lactate Sodium 139 Potassium 3.2 L Chloride 103 Carbon Dioxide 22.3 Anion Gap 13.7 H BUN 9 Creatinine 0.9 Estimated GFR/1.73 m2 >= 60.00 Glucose 122 H Calcium 8.7 Total Bilirubin 0.3 AST 16 ALT 21 Alkaline Phosphatase 131 H C-Reactive Protein 9.33 H Total Protein 6.3 L Albumin 2.3 L Urine Color Urine Clarity Urine pH Ur Specific [place] Urine Protein Urine Ketones Urine Blood Urine Nitrite Urine Bilirubin Urine Urobilinogen Ur Leukocyte Esterase Urine RBC Urine WBC Ur Epithelial Cells Urine Crystals Urine Bacteria Urine Casts Urine Mucus Ur Culture Indicated? Urine Glucose COVID-19 Source Nasal/nares Cancelled SARS-CoV-2 (PCR) Negative Cancelled 02/03/21 02/03/21 02/03/21 20:10 20:10 20:25 WBC 14.09 H RBC 3.11 L Hgb 8.5 L Hct 26.8 L MCV 86.2 MCH 27.3 MCHC 31.7 L RDW 13.9 Plt Count 151 MPV 12.6 H Immature Gran % 1.8 Neutrophils % 89.2 Band Neutrophils % Lymphocytes % 5.0 Atypical Lymphs % Monocytes % 3.4 Eosinophils % 0.5 Basophils % 0.1 Metamyelocytes % Myelocytes % Promyelocytes % Other Cells % Nucleated RBC % 0 Absolute Neutrophils 12.57 H Absolute Lymphocytes 0.70 L Absolute Monocytes 0.48 Absolute Eosinophils 0.07 Absolute Basophils 0.01 RBC Morphology Polychromasia Hypochromasia Poikilocytosis Basophilic Stippling Anisocytosis Microcytosis Macrocytosis Spherocytes Tear Drop Cells Ovalocytes Stomatocytes Ball[place] Bodies Sara Cells/Echinocytes Acanthocytes (Spur) Schistocytes PT 9.4 INR 0.9 VBG Lactate 2.8 H* Sodium Potassium Chloride Carbon Dioxide Anion Gap BUN Creatinine Estimated GFR/1.73 m2 Glucose Calcium Total Bilirubin AST ALT Alkaline Phosphatase C-Reactive Protein Total Protein Albumin Urine Color Urine Clarity Urine pH Ur Specific [place] Urine Protein Urine Ketones Urine Blood Urine Nitrite Urine Bilirubin Urine Urobilinogen Ur Leukocyte Esterase Urine RBC Urine WBC Ur Epithelial Cells Urine Crystals Urine Bacteria Urine Casts Urine Mucus Ur Culture Indicated? Urine Glucose COVID-19 Source SARS-CoV-2 (PCR) 02/03/21 21:00 WBC RBC Hgb Hct MCV MCH MCHC RDW Plt Count MPV Immature Gran % Neutrophils % Band Neutrophils % Lymphocytes % Atypical Lymphs % Monocytes % Eosinophils % Basophils % Metamyelocytes % Myelocytes % Promyelocytes % Other Cells % Nucleated RBC % Absolute Neutrophils Absolute Lymphocytes Absolute Monocytes Absolute Eosinophils Absolute Basophils RBC Morphology Polychromasia Hypochromasia Poikilocytosis Basophilic Stippling Anisocytosis Microcytosis Macrocytosis Spherocytes Tear Drop Cells Ovalocytes Stomatocytes [place] Bodies Sara Cells/Echinocytes Acanthocytes (Spur) Schistocytes PT INR VBG Lactate Sodium Potassium Chloride Carbon Dioxide Anion Gap BUN Creatinine Estimated GFR/1.73 m2 Glucose Calcium Total Bilirubin AST ALT Alkaline Phosphatase C-Reactive Protein Total Protein Albumin Urine Color Yellow Urine Clarity Cloudy Urine pH 5.5 Ur Specific [place] 1.015 Urine Protein 30 H Urine Ketones Negative Urine Blood Large H Urine Nitrite Negative Urine Bilirubin Negative Urine Urobilinogen 0.2 Ur Leukocyte Esterase Small H Urine RBC >50 H Urine WBC 10-20 H Ur Epithelial Cells Moderate Urine Crystals Negative Urine Bacteria Few Urine Casts Negative Urine Mucus Negative Ur Culture Indicated? No/sq. contamination Urine Glucose Negative COVID-19 Source SARS-CoV-2 (PCR)
[2021-02-04 07:38] LABS: Abs Immature Grans 0.22 10^3/uL (0.0-0.06); Absolute Basophil Count 0.01 10^3/uL (0.0-0.2); Absolute Eosinophil Count 0.01 10^3/uL (0.0-0.7); Absolute Lymphocyte Count 0.51 10^3/uL (1.2-3.4); Absolute Monocyte Count 0.19 10^3/uL (0.1-0.8); Basophils % 0.2; Eosinophils % 0.2; HGB 7.7 g/dL (11.2-15.7); Immature Grans % 3.4; Lymphocytes % 7.8; MCH 27.6 pg (27.0-33.0); MCHC 32.1 % (32.0-36.0); MPV 12.4 fL (8.0-11.0); Monocytes % 2.9; Neutrophils % 85.5; Nucleated RBC 0 %; Platelet Count 142 10^3/uL (130-400); RBC 2.79 10^6/uL (3.93-5.22); RDW 14.1 % (11.7-14.6); RDW-SD 43.5 fL; WBC 6.55 10^3/uL (4.4-10.8)
[2021-02-04 07:51] LABS: Albumin 1.9 g/dL (3.4-5.0); Anion Gap 7.6 mmol/L (3-11); BUN 7 mg/dL (7-18); CO2 24.4 mmol/L (21.0-32.0); CREATININE 0.7 mg/dL (0.55-1.02); Chloride 108 mmol/L (98-107); Glucose 96 mg/dL (74-106); PHOSPHORUS 3.6 mg/dL (2.6-4.7); Sodium 140 mmol/L (136-145)
[2021-02-04 08:11] LABS: Diff Comment RBC Morph Reviewed
[2021-02-04 08:12] LABS: Microcytosis 1+; Polychromasia Present
[2021-02-04] MEDS: metroNIDAZOLE 500 MG/100 ML BAG 100 MG IVPB ×2 (08:36→21:07)
[2021-02-04] MEDS: Lactated Ringers 1,000 ML 125 ML IV (08:38)
--- NOTE | 2021-02-04 09:38 | PDOC.ANES ---
Anesthesia Note Requested by Dr. Belle to evaluate Ms. Leedzma after a successful Continuous Labor Epidural and delivery complicated by post hemmorhage of 1500 cc. on 01/31. Pt presented to the hospital yesterday with a headache, fever, low back pain, and fatigue. Labs indicate a high WBC and anemia. She is being treated with a triple antibiotic therapy.Vital signs are stable. She has no photophobia or increase in headache pain while sitting up in bed. Pt describes that she has frequent tension headaches that are treated with Tylenol and caffeine. Placement of the epidural DID NOT puncture the Dura Mater. There was NO wet tap. Epidural puncture site has no induration, exudate, or hematoma. Pt reports that she feels much, much better today. Her low back pain is gone but a mild to moderate headache remains. She beleives this will resolve with having some Tea for caffeine. WBC count has dropped from 16 to 6. No intervention is indicated for the Anesthesia Team. I shared my findings with Dr. Belle by phone
[2021-02-04] MEDS: Butalbital/Acetaminophen/Caffeine 50/325/40 TAB PO (12:39)
[2021-02-04] MEDS: Milk of Magnesia 30 ML CUP PO (14:48)
[2021-02-04] MEDS: Docusate Sodium 100 MG CAP PO (19:49)
[2021-02-04] MEDS: Normal Saline Flush 10 ML SYR IVP ×2 (21:25→22:24)
[2021-02-05 00:02] VITALS: BP 138/86; PULSE 76; RESP 16; TEMP 36.5; O2SAT 100
[2021-02-05] MEDS: CLINDAMYCIN 900 MG/50 ML BAG 50 MG IVPB (01:57)
[2021-02-05] MEDS: Acetaminophen 325 MG TAB 650 MG PO ×2 (01:58→06:08)
[2021-02-05] MEDS: Normal Saline Flush 10 ML SYR IVP ×2 (01:58→05:13)
[2021-02-05] MEDS: Ibuprofen 600 MG TAB PO (02:00)
[2021-02-05 04:25] VITALS: BP 128/90; PULSE 90; RESP 16; TEMP 36.6; O2SAT 100
[2021-02-05] MEDS: metroNIDAZOLE 500 MG/100 ML BAG 100 MG IVPB (05:12)
[2021-02-05 07:20] LABS: Abs Immature Grans 0.14 10^3/uL (0.0-0.06); Absolute Basophil Count 0.02 10^3/uL (0.0-0.2); Absolute Eosinophil Count 0.13 10^3/uL (0.0-0.7); Absolute Lymphocyte Count 0.89 10^3/uL (1.2-3.4); Absolute Monocyte Count 0.47 10^3/uL (0.1-0.8); Absolute Neutrophil Count 4.76 10^3/uL (1.2-6.7); Basophils % 0.3; HGB 7.9 g/dL (11.2-15.7); Immature Grans % 2.2; Lymphocytes % 13.9; MCH 27.4 pg (27.0-33.0); MCHC 31.6 % (32.0-36.0); MCV 86.8 fL (80-95); MPV 12.7 fL (8.0-11.0); Monocytes % 7.3; Neutrophils % 74.3; Nucleated RBC 0 %; Platelet Count 151 10^3/uL (130-400); RBC 2.88 10^6/uL (3.93-5.22); RDW 14.2 % (11.7-14.6); RDW-SD 43.8 fL; WBC 6.41 10^3/uL (4.4-10.8)
[2021-02-05 07:31] VITALS: TEMP 36.7
--- NOTE | 2021-02-05 08:29 | DSE_ITS ---
Date of service: 02/05/21 Time of Service: 09:04 DS: Diagnosis Discharge Diagnosis (1) Endometritis following delivery: Status: Acute (2) Acute blood loss anemia: Status: Acute (3) Lactating mother: Status: Acute (4) care following vaginal delivery: Status: Acute (5) Hypokalemia: Status: Acute Discharge Plan Disposition Patient Disposition: HOME Condition: Fair Discharge Details Reason For Visit: ENDOMETRITS Admit Date/Time: 02/04/21 07:44 Admit Provider: Shelley Martinez Attending Provider: Shelley Martinez Primary Care Provider: Carmella Burns Hospital Course Hospital Course: Pt admitted with fever. Treated with triple antibiotic therapy. Her temperature declined and she was afebrile the morning of discharge x24hrs Home Meds and New Rx's Prescriptions: No Action Vitamin tablet 1 tab PO DAILY Qty: 30 RF: 0 ferrous sulfate [Feosol] 325 mg (65 mg iron) tablet 325 mg PO BID Qty: 90 RF: 2 (DME) breast pump Device See Rx Instructions .ROUTE .MEDSUPPLY Qty: 1 RF: 0 metronidazole [Flagyl] 500 mg tablet 500 mg PO BID Qty: 14 RF: 0 Discharge Instructions Additional Instructions: F/U with CNM service later this week. Take Metronidazole 500mg every 12 hrs for 7 days. Call the CNM service with any recurrence of fever. Activity:: Activity as Tolerated Equipment/Supplies:: No Equipment Needed Diet:: As Tolerated Discharge Orders Discharge Orders: Discharge Order (Routine); Ordered 02/05/21 Ordered By: Natalie Stuart DS: Summary Time Spent with Patient providing and/or coordinating discharge services: Less than 30 minutes Status at Discharge Functional status at discharge: independent ambulation Overall status at discharge: patient is progressing back to baseline Mental Status: mental status grossly normal Speech and Movement: speech and movement normal Mood: congruent mood Affect: normal affect Exam Narrative Exam Narrative: Patient comfortable. Reports no fever for 24 hours no abdominal or back pain. Wishes to be discharged home. Agrees that she will use Flagyl 500 mg twice daily for the next week. Const General: no acute distress Nutritional Appearance: overweight Orientation: alert, awake and oriented x3 Resp Effort & Inspection: normal respiratory effort GI Inspection: normal to inspection Palpation: soft, mass (Fundus involuting appropriately. Nontender) and nontender General: deferred Skin General skin exam: no rashes or lesions noted Extrem General: normal to inspection Psych Appearance: grossly normal Mental Status: mental status grossly normal Speech and Movement: speech and movement normal Mood: congruent mood Affect: normal affect Attitude: cooperative Thought Process: normal DS: Data Vitals/I&O Vitals and I&O: Vital Signs Temperature 98.1 F 02/05/21 07:31 Temperature Source Oral 02/05/21 07:31 Pulse 90 02/05/21 04:25 Pulse Rhythm Regular 02/04/21 20:00 Respiratory Rate 16 02/05/21 04:25 Respiratory Depth Normal 02/04/21 20:00 Blood Pressure 128/90 02/05/21 04:25 Pulse Oximetry 100 02/05/21 04:25 Oxygen Delivery Method Room Air 02/05/21 04:25 Oxygen Flow Rate 0 02/05/21 04:25 Pain Level 1 02/05/21 06:08 Comment 02/05/21 07:31 Intake & Output 02/04/21 02/04/21 02/05/21 11:59 23:59 11:59 Intake Total 1150 / 2259.9 1109.9 / 2259.9 450 / 450 Output Total 1400 / 2300 900 / 2300 Balance -250 / -40.1 209.9 / -40.1 450 / 450 Intake: IV 1050 / 1459.9 409.9 / 1459.9 150 / 150 Oral 100 / 800 700 / 800 300 / 300 Output: Urine 1400 / 2300 900 / 2300 Other: Urine Color [place] Urine Appearance Clear Urine Odor None Voiding Methods Toilet Data Completed and Pending Labs on day of discharge: Labs from last 24 hours 02/05/21 06:45 WBC 6.41 RBC 2.88 L Hgb 7.9 L Hct 25.0 L MCV 86.8 MCH 27.4 MCHC 31.6 L RDW 14.2 Plt Count 151 MPV 12.7 H Immature Gran % 2.2 Neutrophils % 74.3 Lymphocytes % 13.9 Monocytes % 7.3 Eosinophils % 2.0 Basophils % 0.3 Nucleated RBC % 0 Absolute Neutrophils 4.76 Absolute Lymphocytes 0.89 L Absolute Monocytes 0.47 Absolute Eosinophils 0.13 Absolute Basophils 0.02 Preliminary micro results at discharge 03/20/21 20:25 Blood Culture - Preliminary Blood NO GROWTH 24 HOURS 02/03/21 20:10 Blood Culture - Preliminary Blood NO GROWTH 24 HOURS PFSH Medical History (Updated 02/04/21 @ 07:35 by Alice Belle DO) Positive test hemorrhage Surgical History (Updated 07/20/20 @ 10:44 by Cristian Salcido CNM) S/P left knee surgery Tonsillectomy 06/2013 Tooth extraction Wisdome teeth Family History Mother Essential hypertension Father Essential hypertension Social History Smoking/Tobacco Use Status: Never Smoking risk assessment performed?: Yes Alcohol Intake: current Alcohol Intake frequency: a few times a month Counseling provided: other Drug use: Never Counseling provided: other Details: stopped for Adopted: No Foster care: No 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 What is your relationship status?: Panel score (0-1 are the most socially isolated patients): 1 Seatbelt use: always Helmet use: Yes Drive intox or ride w/intox intermodal 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 Date GA/Weeks # Outcome Route Wgt Sex Labor Lgth Anesthes ia Location Prov Complic 07/19/18 40 No Successful vaginal 9 lb 13 oz Male [facility] Delivery Date: 07/19/18 Epidural. Pitocin and methergine for clotting. EBL 400cc. Shelley Kaur
--- NOTE | 2021-02-05 09:08 | DSE_ITS ---
DS: Diagnosis Discharge Diagnosis (1) Endometritis following delivery: Status: Acute (2) Acute blood loss anemia: Status: Acute (3) Lactating mother: Status: Acute (4) care following vaginal delivery: Status: Acute (5) Hypokalemia: Status: Acute Discharge Plan Disposition Patient Disposition: HOME Condition: Fair Discharge Details Reason For Visit: ENDOMETRITS Admit Date/Time: 02/04/21 07:44 Admit Provider: Shelley Martinez Attending Provider: Shelley Martinez Primary Care Provider: Carmella Burns Hospital Course Hospital Course: Pt admitted with fever. Treated with triple antibiotic therapy. Her temperature declined and she was afebrile the morning of discharge x24hrs Home Meds and New Rx's Prescriptions: No Action Vitamin tablet 1 tab PO DAILY Qty: 30 RF: 0 ferrous sulfate [Feosol] 325 mg (65 mg iron) tablet 325 mg PO BID Qty: 90 RF: 2 (DME) breast pump Device See Rx Instructions .ROUTE .MEDSUPPLY Qty: 1 RF: 0 metronidazole [Flagyl] 500 mg tablet 500 mg PO BID Qty: 14 RF: 0 Discharge Instructions Additional Instructions: F/U with CNM service later this week. Take Metronidazole 500mg every 12 hrs for 7 days. Call the CNM service with any recurrence of fever. Activity:: Activity as Tolerated Equipment/Supplies:: No Equipment Needed Diet:: As Tolerated Discharge Orders Discharge Orders: Discharge Order (Routine); Ordered 02/05/21 Ordered By: Natalie Stuart DS: Summary Time Spent with Patient providing and/or coordinating discharge services: Less than 30 minutes Status at Discharge Functional status at discharge: independent ambulation Overall status at discharge: patient is progressing back to baseline Mental Status: mental status grossly normal Speech and Movement: speech and movement normal Mood: congruent mood Affect: normal affect Exam Psych Mental Status: mental status grossly normal Speech and Movement: speech and movement normal Mood: congruent mood Affect: normal affect DS: Data Vitals/I&O Vitals and I&O: Vital Signs Temperature 98.1 F 02/05/21 07:31 Temperature Source Oral 02/05/21 07:31 Pulse 90 02/05/21 04:25 Pulse Rhythm Regular 02/05/21 08:30 Respiratory Rate 16 02/05/21 04:25 Respiratory Depth Normal 02/04/21 20:00 Blood Pressure 128/90 02/05/21 04:25 Pulse Oximetry 100 02/05/21 04:25 Oxygen Delivery Method Room Air 02/05/21 04:25 Oxygen Flow Rate 0 02/05/21 04:25 Pain Level 1 02/05/21 06:08 Comment 02/05/21 07:31 Intake & Output 02/04/21 02/04/21 02/05/21 11:59 23:59 11:59 Intake Total 1150 / 2259.9 1109.9 / 2259.9 450 / 450 Output Total 1400 / 2300 900 / 2300 Balance -250 / -40.1 209.9 / -40.1 450 / 450 Intake: IV 1050 / 1459.9 409.9 / 1459.9 150 / 150 Oral 100 / 800 700 / 800 300 / 300 Output: Urine 1400 / 2300 900 / 2300 Other: Urine Color [place] Urine Appearance Clear Urine Odor None Voiding Methods Toilet Data Completed and Pending Labs on day of discharge: Labs from last 24 hours 02/05/21 06:45 WBC 6.41 RBC 2.88 L Hgb 7.9 L Hct 25.0 L MCV 86.8 MCH 27.4 MCHC 31.6 L RDW 14.2 Plt Count 151 MPV 12.7 H Immature Gran % 2.2 Neutrophils % 74.3 Lymphocytes % 13.9 Monocytes % 7.3 Eosinophils % 2.0 Basophils % 0.3 Nucleated RBC % 0 Absolute Neutrophils 4.76 Absolute Lymphocytes 0.89 L Absolute Monocytes 0.47 Absolute Eosinophils 0.13 Absolute Basophils 0.02 Preliminary micro results at discharge 02/03/21 20:25 Blood Culture - Preliminary Blood NO GROWTH 24 HOURS 02/03/21 20:10 Blood Culture - Preliminary Blood NO GROWTH 24 HOURS [facility] Medical History (Updated 02/04/21 @ 07:35 by Alice Belle DO) Positive test hemorrhage Surgical History (Updated 07/20/20 @ 10:44 by Cristian Salcido CNM) S/P left knee surgery Tonsillectomy 06/2013 Tooth extraction Wisdome teeth Family History Mother Essential hypertension Father Essential hypertension Social History (Reviewed 07/20/20 @ 10:44 by SANTINO Luis Smoking/Tobacco Use Status: Never Smoking risk assessment performed?: Yes Alcohol Intake: current Alcohol Intake frequency: a few times a month Counseling provided: other Drug use: Never Counseling provided: other Details: stopped for Adopted: No Foster care: No 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 What is your relationship status?: Panel score (0-1 are the most socially isolated patients): 1 Seatbelt use: always Helmet use: Yes Drive intox or ride w/intox 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 Date GA/Weeks # Outcome Route Wgt Sex Labor Lgth Anesthes ia Location Prov Complic 07/19/18 40 No Successful vaginal 9 lb 13 oz Male [facility] Delivery Date: 07/19/18 Epidural. Pitocin and methergine for clotting. EBL 400cc. Shelley Kaur
== END 2021-02-05 09:44 | disposition home or self-care (01) | DRG 776 ==
PROVIDERS: Obstetrics & Gynecology; Admitting Provider Advanced Practice Midwife; PCP Nurse Practitioner; Visit Provider Advanced Practice Midwife
DX: O86.12 Endometritis following delivery (principal); D62 Acute posthemorrhagic anemia; O90.81 Anemia of the puerperium; O90.89 Other complications of the puerperium, not elsewhere classified; E87.6 Hypokalemia
CPT/HCPCS: 36415; 80053; 80069; 85027; 87040; 87635; 99233; 99238; 99253; NC; 71045; 80170; 81003; 81015; 83605; 85007; 85025; 85610; 86140; J1580; J3490

== ENCOUNTER 2021-02-13 03:45 | Outpatient (CLI) | payer OTHER, SELFPAY ==
[2021-02-13 11:24] LABS: Abs Immature Grans 0.12 10^3/uL (0.0-0.06); Absolute Basophil Count 0.05 10^3/uL (0.0-0.2); Absolute Eosinophil Count 0.19 10^3/uL (0.0-0.7); Absolute Lymphocyte Count 3.31 10^3/uL (1.2-3.4); Basophils % 0.4; Eosinophils % 1.7; HCT 34.2 % (36.0-46.0); HGB 10.8 g/dL (11.2-15.7); Immature Grans % 1.1; Lymphocytes % 29.2; MCH 26.5 pg (27.0-33.0); MCHC 31.6 % (32.0-36.0); MPV 10.9 fL (8.0-11.0); Monocytes % 6.4; Neutrophils % 61.2; Nucleated RBC 0 %; Platelet Count 499 10^3/uL (130-400); RBC 4.07 10^6/uL (3.93-5.22); RDW 13.6 % (11.7-14.6); RDW-SD 41.5 fL; WBC 11.33 10^3/uL (4.4-10.8)
[2021-02-13 11:40] LABS: Absolute Monocyte Count 0.73 10^3/uL (0.1-0.8); Absolute Neutrophil Count 6.93 10^3/uL (1.2-6.7)
== END 2021-02-13 03:46 | disposition home or self-care (01) ==
LOC: LBO 03:45
PROVIDERS: PCP Nurse Practitioner; Visit Provider Advanced Practice Midwife
DX: D62 Acute posthemorrhagic anemia (principal)
CPT/HCPCS: 36415; 85025

== ENCOUNTER 2021-04-18 03:27 | Outpatient (CLI) | payer OTHER, SELFPAY ==
[2021-04-18 12:15] LABS: HCG Quant, Pregnancy < 1 mIU/mL (1-3)
== END 2021-04-18 03:28 | disposition home or self-care (01) ==
LOC: LBO 03:27
PROVIDERS: PCP Nurse Practitioner; Visit Provider Advanced Practice Midwife
DX: O20.0 Threatened abortion (principal)
CPT/HCPCS: 36415; 84702

== ENCOUNTER 2021-11-16 14:54 | Outpatient (CLI) | payer SELFPAY ==
[2021-11-16 15:51] LABS: Source Nasal/Nares
[2021-11-16 16:33] LABS: COVID-19 PCR Negative (Negative)
== END 2021-11-16 14:55 | disposition home or self-care (01) ==
PROVIDERS: PCP Nurse Practitioner; Visit Provider Family Medicine
DX: Z20.822 Contact with and (suspected) exposure to COVID-19 (principal)
CPT/HCPCS: 87635

== ENCOUNTER 2022-01-09 01:40 | Outpatient (CLI) | payer OTHER, SELFPAY ==
[2022-01-09 11:32] LABS: Abs Immature Grans 0.03 10^3/uL (0.0-0.06); Absolute Basophil Count 0.02 10^3/uL (0.0-0.2); Absolute Eosinophil Count 0.07 10^3/uL (0.0-0.7); Absolute Lymphocyte Count 2.27 10^3/uL (1.2-3.4); Absolute Monocyte Count 0.55 10^3/uL (0.1-0.8); Absolute Neutrophil Count 8.34 10^3/uL (1.2-6.7); Basophils % 0.2; Eosinophils % 0.6; HCT 41.5 % (36.0-46.0); Immature Grans % 0.3; Lymphocytes % 20.1; MCH 29.4 pg (27.0-33.0); MCHC 33.7 % (32.0-36.0); MCV 87.2 fL (80-95); MPV 12.2 fL (8.0-11.0); Monocytes % 4.9; Neutrophils % 73.9; Nucleated RBC 0 %; Platelet Count 184 10^3/uL (130-400); RBC 4.76 10^6/uL (3.93-5.22); RDW 12.2 % (11.7-14.6); RDW-SD 39.1 fL; WBC 11.28 10^3/uL (4.4-10.8)
[2022-01-09 11:38] LABS: Glucose,1 Hr (Glucola) 131 mg/dL (80-140)
[2022-01-09 15:48] LABS: *AMPHETAMINES SCREEN URINE Negative (Negative); *BARBITURATES SCREEN URINE Negative (Negative); *BENZODIAZEPINES SCREEN URINE Negative (Negative); Cannabinoids THC Negative (Negative); Cocaine Screen,Urine Negative (Negative); METHADONE URINE SCREEN Negative (Negative); OPIATES URINE SCREEN Negative (Negative)
[2022-01-09 15:52] LABS: Tricyclic Antidepressants Negative (Negative)
[2022-01-10 09:55] LABS: Hepatitis B Surface Ag Negative (Negative)
[2022-01-10 10:11] LABS: Hepatitis C Ab w Rflx HCV PCR Negative (Negative)
[2022-01-10 10:33] LABS: HIV-1/2 Ag & Ab Screen Negative (Negative)
[2022-01-10 11:21] LABS: Rubella IgG Ab (UVM) Positive (See Note)
[2022-01-10 12:18] LABS: Varicella IgG Antibody Equivocal (See Note)
[2022-01-11 17:47] LABS: Syphilis IgG w/Reflex Nonreactive (Nonreactive)
[2022-01-16 10:45] LABS: Buprenorphine Negative ng/mL (Cutoff: 5.0); Norbuprenorphine Negative ng/mL (Cutoff: 2.5)
== END 2022-01-09 01:41 | disposition home or self-care (01) ==
LOC: LBO 01:40
PROVIDERS: PCP Nurse Practitioner; Visit Provider Advanced Practice Midwife
DX: Z34.91 Encounter for supervision of normal pregnancy, unspecified, first trimester (principal); Z3A.11 11 weeks gestation of pregnancy
CPT/HCPCS: 36415; 80307; 82950; 86787; 86803; 86850; 86900; 86901; 87340; 87389; 84443; 85025; 86762; 86780; 87086

== ENCOUNTER 2022-02-05 15:40 | Outpatient (REF) | payer OTHER, SELFPAY ==
[2022-02-07 15:00] LABS: Chlamydia Result Negative (Negative); GC Result Negative (Negative)
== END 2022-02-05 15:41 | disposition home or self-care (01) ==
LOC: LBN 15:40
PROVIDERS: PCP Nurse Practitioner; Visit Provider Advanced Practice Midwife
DX: Z34.92 Encounter for supervision of normal pregnancy, unspecified, second trimester (principal); Z3A.15 15 weeks gestation of pregnancy
CPT/HCPCS: 87491; 87591

== ENCOUNTER 2022-02-20 02:45 | Outpatient (CLI) | payer OTHER, SELFPAY ==
[2022-02-21 16:36] LABS: AFP 34.9 ng/mL; Calculated age at EDD 26 years; Cigarette smoking status non-Smoker; Down syndrome maternalage risk 1/990; GA used in risk estimate Scan estimate; INHIBIN 118 pg/mL; IVF Pregnancy No; Initial or repeat testing Initial testing; Insulin dependent diabetes No; Maternal Weight 213 lbs; Number of Fetuses 1; Physician Phone Number 802-748-7300; Prev Down(T21)/Trisomy Pregnan No; Prev Pregnancy w/NTD No; RECOMMENDED FOLLOW UP None.; Results Summary Normal risk; hCG, TOTAL 30.5 IU/mL; hCG, TOTAL MoM 1.33 MoM; uE3 1.25 ng/mL; uE3 MoM 1.06 MoM
== END 2022-02-20 02:46 | disposition home or self-care (01) ==
LOC: LBO 02:45
PROVIDERS: PCP Nurse Practitioner; Visit Provider Advanced Practice Midwife
DX: Z34.92 Encounter for supervision of normal pregnancy, unspecified, second trimester (principal); Z3A.17 17 weeks gestation of pregnancy; Z36.89 Encounter for other specified antenatal screening
CPT/HCPCS: 36415; 81511

== ENCOUNTER 2022-05-06 02:47 | Outpatient (CLI) | payer OTHER, SELFPAY ==
[2022-05-06 07:34] LABS: HCT 36.9 % (36.0-46.0); HGB 12.2 g/dL (11.2-15.7); MCH 28.5 pg (27.0-33.0); MCHC 33.1 % (32.0-36.0); MCV 86 fL (80-95); Platelet Count 180 10^3/uL (130-400); RBC 4.28 10^6/uL (3.93-5.22); RDW 12.2 % (11.7-14.6); RDW-SD 38.5 fL; WBC 9.71 10^3/uL (4.4-10.8)
[2022-05-06 09:37] LABS: Glucose 1 Hour 160 mg/dL
[2022-05-06 12:11] LABS: Glucose 3 Hour 43 mg/dL
== END 2022-05-06 02:48 | disposition home or self-care (01) ==
LOC: LBO 02:48
PROVIDERS: PCP Nurse Practitioner; Visit Provider Advanced Practice Midwife
DX: O09.299 Supervision of pregnancy with other poor reproductive or obstetric history, unspecified trimester (principal); Z34.90 Encounter for supervision of normal pregnancy, unspecified, unspecified trimester; O26.899 Other specified pregnancy related conditions, unspecified trimester; Z67.91 Unspecified blood type, Rh negative
CPT/HCPCS: 36415; 85027; 86850; 86900; 86901; 90384; 82951

== ENCOUNTER 2022-07-02 09:59 | Outpatient (REF) | payer OTHER, SELFPAY | END 2022-07-02 10:00 | disposition home or self-care (01) | LOC: LBN 09:59 | PROVIDERS: PCP Nurse Practitioner; Visit Provider Advanced Practice Midwife | DX: Z34.93 Encounter for supervision of normal pregnancy, unspecified, third trimester (principal); Z36.85 Encounter for antenatal screening for Streptococcus B; Z3A.36 36 weeks gestation of pregnancy | CPT/HCPCS: 87081 ==

== ENCOUNTER 2022-07-16 14:56 | Outpatient (CLI) | payer OTHER, SELFPAY ==
[2022-07-16 17:10] VITALS: BP 122/73; PULSE 81
[2022-07-16 17:31] VITALS: BP 122/73; PULSE 81; TEMP 36.6
--- NOTE | 2022-07-16 17:37 | W.OBNST ---
Date of service: 07/16/22 Time of Service: 17:37 NST Evaluation Reason for NST Reasons for Nonstress Test: OTHER, SEE COMMENT Reason for NST Other: COVID+ at 38 weeks Gestational Age Gestational Age in Weeks and Days: 38 Weeks and 0Days Test and Monitor Explained Test/Monitor Explained: Test Explained, Monitor Explained and Patient Verbalized Understanding Vital Signs Blood Pressure: 122/73 Pulse: 81 Temperature: 97.9 F NST Information Date on Monitor: 07/16/22 Time on Monitor: 17:08 Date off Monitor: 07/16/22 Time off Monitor: 17:30 Total Time on Monitor: 22 NST Interventions: None Contraction Frequency: 0 NST Evaluation Patient States Movement: Present FHR Baseline: 130 Variability: Moderate 6-25 bpm Accelerations: 15x15 Decelerations: None NST Results: Reactive Note NST Note Note: NST is reactive and reassuring. Will do weekly NST due to COVID late third trimester. NST Reviewed and Verified by: Shelley Martinez
[2022-07-16 17:38] VITALS: BP 122/73; PULSE 81; TEMP 36.6
== END 2022-07-16 17:34 | disposition home or self-care (01) ==
LOC: BCD 14:57 → OBS 17:02
PROVIDERS: PCP Nurse Practitioner; Visit Provider Advanced Practice Midwife
DX: O98.513 Other viral diseases complicating pregnancy, third trimester (principal); U07.1 COVID-19; Z3A.38 38 weeks gestation of pregnancy
CPT/HCPCS: 59025

== ENCOUNTER 2022-07-24 03:51 | Outpatient (CLI) | payer OTHER, SELFPAY ==
[2022-07-24 17:04] VITALS: BP 133/83; PULSE 71
[2022-07-24 17:07] VITALS: BP 133/83; PULSE 71; TEMP 36.5
[2022-07-24 22:10] VITALS: BP 133/83; PULSE 71; TEMP 36.5
--- NOTE | 2022-07-24 22:10 | W.OBNST ---
Date of service: 07/24/22 Time of Service: 22:10 NST Evaluation Reason for NST Reasons for Nonstress Test: OTHER, SEE COMMENT Reason for NST Other: Covid in , elevated BP in office and protein in urine Gestational Age Gestational Age in Weeks and Days: 39 Weeks and 1Days Test and Monitor Explained Test/Monitor Explained: Test Explained, Monitor Explained and Patient Verbalized Understanding Vital Signs Blood Pressure: 133/83 Pulse: 71 Temperature: 97.7 F NST Information Date on Monitor: 07/24/22 Time on Monitor: 17:00 Date off Monitor: 07/24/22 Time off Monitor: 17:23 Total Time on Monitor: 23 NST Interventions: PO Hydration Contraction Frequency: 3-4 NST Evaluation Patient States Movement: Present FHR Baseline: 130 Variability: Moderate 6-25 bpm Accelerations: 15x15 and Prolonged Decelerations: None NST Results: Reactive Note NST Note Note: weekly NST d/t COVID in third trimester NST Reviewed and Verified by: Chuyita Raines
== END 2022-07-24 17:35 | disposition home or self-care (01) ==
LOC: BCD 06:50 → OBS 16:54
PROVIDERS: PCP Family Medicine; Visit Provider Advanced Practice Midwife
DX: O98.513 Other viral diseases complicating pregnancy, third trimester (principal); U07.1 COVID-19; O12.13 Gestational proteinuria, third trimester; Z3A.39 39 weeks gestation of pregnancy
CPT/HCPCS: 59025

== ENCOUNTER 2022-07-27 06:12 | Inpatient (IN) | payer OTHER, SELFPAY ==
[2022-07-27] VITALS (34 sets, daily range): BP systolic 119–154; BP diastolic 63–96; PULSE 61–120; RESP 18; TEMP 36.4–36.6; O2SAT 96–100; BMI 36.4
--- NOTE | 2022-07-27 06:16 | HPE_ITS ---
Date of service: 07/27/22 Time of Service: 06:17 Assessment and Plan Assessment and plan (1) Uterine contractions: Status: Acute Assessment and plan: A: 26 yo @ 39+4 wks Active labor, s/p vaginal bleeding at home Category 1 tracing, GBS neg Increased risk for PPH, low risk for SD COVID URI 2 wks ago, now recovered BP on arrival is 145/94 P: Admit to BC, CBC, T&S, COVID swab Add CMP to labs d/t BP elevation Blood bank notified of PPH hx, states appropriate units are available 2 IV lines initiated, one for saline lock, the other with LR @ 125ml/hr Dr. Horn inhouse and available for consult prn Anticipate (2) Vaginal bleeding in : Status: Acute Assessment and plan: FHT upon arrival is category 1 Bleeding currently not active Blood bank notified of pt admission and PPH hx OB-HPI Labor/Delivery History of Present Illness Reason for Visit: Spontaneous labor at term Chief Complaint: Uterine Contractions (Contractions all night since 1999 last evening, two golf ball sized clots came out at home with additional vaginal bleeding which convinced her to come in for evaluation. No vomiting, +FM); Vaginal Bleeding , Associated Signs and Symptoms of Vaginal Bleeding: dried blood trail noted on right leg upon arrival, minimal amt of derrick blood with small clots swept from vaginal vault. [place] Calculator Estimated Delivery Date Method Current WG Current Estimate 07/30/22 Ultrasound #1 39w 4d Other Estimates 07/21/22 LMP (Uncertain) 40w 6d History of Present Expected Delivery Route/Plan - CNM FOB/ - Jw Ledezma (third baby together) BB yes to zeke Stephen Varicella Equivocal, offer vaccine GBS negative Specific Issues/Plan 1. Hx macrosomic infants x2, BMI 31; early [id number] 1a. 3 hour GTT 27w6d F83/1h 160/2h 115/ 3h 43 (had snack and was OK) 2. Pt & are vaccinated against COVID but not boosted 3. Hx delayed PPH after 2nd delivery & PP endometriosis: plan IV access in labor 4. Hx amoxicillin allergy (rash), discussed allergy testing @ [facility], declines referral 5. Closely spaced pregnancies, conception at 8 months 6. Declines genetic screening tests, declination form signed; desires Quad scree n @ 16 wks neg 7. Low dose ASA recommended d/t fam hx and BMI 31, to start @ 12 wks 8. Hx anxiety at first , better @ 2nd, no meds needed 9. Currently nursing toddler, plans to wean in 2nd trimester. Weaned as of 19 wks. 10. Varicella equivocal (pt aware), offer vaccine PP 11. Tested COVID+ on 07/12 after 5 days of mild sx, plan weekly NST's until delivery Assessment: History Reviewed & Current Review of Systems Narrative: ROS completed and found to be noncontributory other then HPI PFSH All Active Problems (Updated 07/27/22 @ 06:35 by Chuyita Raines) Vaginal bleeding in (Acute) onset with labor this morning Uterine contractions (Acute) Rh negative state in antepartum period (Acute) (Acute) Maternal varicella, non-immune (Acute) Allergy to amoxicillin (Acute) History of macrosomia in infant in prior , currently (Acute) Hx of hemorrhage, currently (Acute) Lactating mother (Acute) Medical History (Updated 07/27/22 @ 06:35 by Chuyita Raines) 11 weeks gestation of Acute blood loss anemia Encounter for insertion of mirena IUD Endometritis following delivery hemorrhage Surgical History (Updated 07/20/20 @ 10:44 by Cristian Salcido RN) S/P left knee surgery Tonsillectomy 06/2013 Tooth extraction Wisdome teeth Family History Mother Essential hypertension Father Essential hypertension Social History Smoking/Tobacco Use Status: Never Smoking risk assessment performed?: Yes Alcohol Intake: current Alcohol Intake frequency: a few times a month Counseling provided: other Drug use: Never Counseling provided: other Details: stopped for Adopted: No Foster care: No 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 What is your relationship status?: Panel score (0-1 are the most socially isolated patients): 1 Seatbelt use: always Helmet use: Yes Drive intox or ride w/intox regional driver: No Water heater temp set <120 deg: Yes Working smoke detector in home: Yes Fire extinguisher in home: Yes Carbon monox detector in home: Yes Firearms in home: Yes Do you feel safe at home: Yes Victim of physical abuse: No Victim of emotional abuse: No Victim of sexual abuse: No Female Reproductive History Menstrual control method: condoms History History 3 Para 2 Hx # Term Pregnancies 2 Multiple births 0 Hx # Pregnancies 0 Ectopic pregnancies 0 AB induced 0 Hx Number of Living Children 2 AB spontaneous 0 Past Pregnancies Del. Date GA/Weeks # Preg Succ Route Wgt Sex Labor Lgth Anesth esia Location Prov Complic 07/19/18 40 No vaginal 9 lb 13 oz Male 11 hrs [facility] 01/31/21 40 No vaginal 9 lb 3.1 oz Male 6 hrs 29 min. [facility] Delivery Date: 07/19/18 Last Updated by: Chuyita Raines Epidural but not effective. Pitocin & methergine for clotting. EBL 400ml. [place] Delivery Date: 01/31/21 Last Updated by: Chuyita Raines Spont labor, pit aug, epidural. Delayed PPH 3 hrs after , >1700 QBL, declines PRBC's, readmitted for endometritis. Christopher Escalera Meds Allergies and Home Medications Allergies Allergy/AdvReac Type Severity Reaction Status Date / Time amoxicillin Allergy SKIN RASH Verified 07/24/22 10:03 clavulanic acid Allergy UNKNOWN Verified 07/24/22 10:03 codeine AdvReac Intermediate kept her Verified 07/24/22 10:03 awake for 48 hrs Home Medications Medication Instructions Recorded Confirmed Type vitamin with calcium 1 tab PO DAILY #90 tabs 12/18/21 07/24/22 Rx no.72-iron 27 mg-folic acid 1 mg tablet (PrePlus) aspirin 81 mg tablet,delayed 81 mg PO DAILY #90 tabs 01/09/22 07/24/22 Rx release ondansetron 4 mg disintegrating 4 mg PO Q8H #30 tabs 02/05/22 07/24/22 Rx tablet Exam Physical Exam Vital signs: 145/94, pulse 85 Vital Signs Reviewed: Yes Narrative: Will retake BP after admission procedures are completed Add CMP to initial labs Constitutional Constitutional: mild distress Detailed Labor and Delivery Exam Dilation: 6 Effacement (%): 80 station: -2 Cervix position: posterior Consistency: soft Amniotic Membrane Status: Intact (soft forebag palpable) Fetus A Heart Rate Baseline: 150 HEENT Exam HEENT Exam: Normal Neck Exam Neck Exam: Normal Chest/Brest/Axilla Exam Chest Exam: Normal Breast Exam Breast Exam: Not Done Respiratory Exam Respiratory Exam: Normal Cardiovascular Exam Cardiovascular Exam: Normal Abdominal Exam Abdominal Exam: Normal (Gravid, nontender) Rectal Exam Rectal Exam: Normal Exam Exam: Normal Detailed Exam Comments: Pt reports heavy vaginal bleeding at home, arrives with dried trail of blood down her right leg, On vaginal exam minimal bloody mucous and small clots swept from vault. No active flow of blood. Unlikely to be ROM as forebag is palpable and blood appears undiluted, though unable to determine with certainty Extremities Exam Extremities Exam: Normal Back/Spine/Pelvis Exam Back Exam: Normal Pelvis Adequate: Yes (proven to ) Skin Exam Skin Exam: Normal Neurological Exam Neurological Exam: Normal Psychiatric Exam Psychiatric Exam: Normal Results Results Group Beta Strep: Negative Blood Type: A- Rubella Status: Immune Varicella Immunity: Equivocal Risk Assessment Risk for Shoulder Dystocia Historical/Initial OB: POSITIVE FOR: Previous Macrosomia (Both babies >9 lbs, no shoulder issues); NEGATIVE FOR: Pelvic Abnormality, Pre- BMI>30 or Previous Shoulder Dystocia Increased Risk?: No Delivery Plan @ 36wks: vaginal delivery expected. Has had LGA babies without shoulder dystocia. KH Delivery Plan @ 40 wks: proven to Risk for Pre-Eclampsia Date Initiated/Initials: pt advised to take low dose ASA starting at 12 wks. JK Yes, if one or more: NEGATIVE FOR: Hx Pre-E/Gest HTN, Chronic HTN, Multiple Gestation, Pre-gestational DM, Renal Disease, Systemic Lupus or APA Syndrome Yes, if 2 or more: POSITIVE FOR: BMI>30 and Mother/Sister w/ Pre-E; NEGATIVE FOR: Nulliparity, Age>= 35 yrs, >10yr btwn pregnancies, ethinicty or Previous IUGR Risk for Post- Hemorrhage Initial: POSITIVE FOR: Previous PPH; NEGATIVE FOR: Multiple Gestation, Known Clotting Deficiency, Grand Multiparity or Anticoagulation At Risk?: Yes Interventions: pt accepts IV access during labor, accepts prophylactic medications Counseled re: Active Management: Yes Risks Reviewed Risks Reviewed Upon Admission: Yes
[2022-07-27] MEDS: Normal Saline Flush 10 ML SYR IVP (07:00)
[2022-07-27 07:03] LABS: HCT 33.5 % (36.0-46.0); HGB 10.7 g/dL (11.2-15.7); MCH 25.1 pg (27.0-33.0); MCHC 31.9 % (32.0-36.0); MCV 79 fL (80-95); Platelet Count 150 10^3/uL (130-400); RBC 4.27 10^6/uL (3.93-5.22); RDW 14.3 % (11.7-14.6); RDW-SD 40.3 fL; WBC 14.67 10^3/uL (4.4-10.8)
[2022-07-27 07:21] LABS: ALT 13 U/L (14-59); AST 12 U/L (15-37); Albumin 2.4 g/dL (3.4-5.0); Alkaline Phosphatase 126 U/L (46-116); Anion Gap 12.9 mmol/L (3-11); BUN 9 mg/dL (7-18); Bilirubin, Total 0.3 mg/dL (0.2-1.0); CO2 19.1 mmol/L (21.0-32.0); CREATININE 0.9 mg/dL (0.55-1.02); Calcium 8.4 mg/dL (8.5-10.1); Chloride 106 mmol/L (98-107); Estimated GFR 90.42 (mL/min/1.73m2); Glucose 79 mg/dL (74-106); Potassium 4.1 mmol/L (3.5-5.1); Sodium 138 mmol/L (136-145); Total Protein 6.4 g/dL (6.4-8.2)
[2022-07-27 08:32] LABS: COMMENT (LAB VIEW ONLY) 142.82 mg/dL; PROTEIN 38.1 mg/dL; Prot/Crea Ur Ratio 0.26
--- NOTE | 2022-07-27 09:21 | PGE_ITS ---
Date of service: 07/27/22 Time of Service: 09:21 Pelvic Exam Dilation: 6.5 Effacement (%): 90 station: -1 Position: ROP Cervix Position: mid Consistency: soft Contractions Monitor Mode: External Contraction Frequency(min): q2-4 Contraction Duration(sec): 50-70 Intensity: Moderate/Strong Fetus A Monitor: External (US) Heart Rate Baseline: 150 Presentation: Cephalic Variability: Moderate (6-25 BPM) Categories: Category I Accelerations: 15 X 15 Decelerations: None Amniotic Membrane Status: Ruptured Rupture Method: Artifical Amniotic Fluid: Clear Amount: moderate Date of Membrane Rupture: 07/27/22 Time of Membrane Rupture: 09:15 Assessment and Plan Assessment and plan (1) Uterine contractions: Status: Acute Assessment and plan: A: Multipara in active labor Vaginal bleeding on presentation has stabilized/ceased BP stabilized and normotensive, labs were nml Category 1 tracing P: Expectant management Comfort measures as desired by pt Anticipate Dr. Horn inhouse and available for consult prn Objective Abnormal lab results 07/27/22 07/27/22 Range/Units 06:55 06:55 WBC 14.67 H (4.4-10.8) 10^3/uL Hgb 10.7 L (11.2-15.7) g/dL Hct 33.5 L (36.0-46.0) % MCV 79 L (80-95) fL MCH 25.1 L (27.0-33.0) pg MCHC 31.9 L (32.0-36.0) % Carbon Dioxide 19.1 L (21.0-32.0) mmol/L Anion Gap 12.9 H (3-11) mmol/L Calcium 8.4 L (8.5-10.1) mg/dL AST 12 L (15-37) U/L ALT 13 L (14-59) U/L Alkaline Phosphatase 126 H (46-116) U/L Albumin 2.4 L (3.4-5.0) g/dL Temp Pulse BP 97.5 F L 88 137/82 07/27/22 09:12 07/27/22 07:26 07/27/22 07:26 Laboratory Results WBC 14.67 10^3/uL (4.4-10.8) H 07/27/22 06:55 RBC 4.27 10^6/uL (3.93-5.22) 07/27/22 06:55 Hgb 10.7 g/dL (11.2-15.7) L 07/27/22 06:55 Hct 33.5 % (36.0-46.0) L 07/27/22 06:55 MCV 79 fL (80-95) L 07/27/22 06:55 MCH 25.1 pg (27.0-33.0) L 07/27/22 06:55 MCHC 31.9 % (32.0-36.0) L 07/27/22 06:55 RDW 14.3 % (11.7-14.6) 07/27/22 06:55 Plt Count 150 10^3/uL (130-400) 07/27/22 06:55 MPV fL (8.0-11.0) 07/27/22 06:55 Sodium 138 mmol/L (136-145) 07/27/22 06:55 Potassium 4.1 mmol/L (3.5-5.1) 07/27/22 06:55 Chloride 106 mmol/L (98-107) 07/27/22 06:55 Carbon Dioxide 19.1 mmol/L (21.0-32.0) L 07/27/22 06:55 Anion Gap 12.9 mmol/L (3-11) H 07/27/22 06:55 BUN 9 mg/dL (7-18) 07/27/22 06:55 Creatinine 0.9 mg/dL (0.55-1.02) 07/27/22 06:55 Est GFR (CKD-EPI 2020) 90.42 (mL/min/1.73m2) 07/27/22 06:55 Glucose 79 mg/dL (74-106) 07/27/22 06:55 Calcium 8.4 mg/dL (8.5-10.1) L 07/27/22 06:55 Total Bilirubin 0.3 mg/dL (0.2-1.0) 07/27/22 06:55 AST 12 U/L (15-37) L 07/27/22 06:55 ALT 13 U/L (14-59) L 07/27/22 06:55 Alkaline Phosphatase 126 U/L (46-116) H 07/27/22 06:55 Total Protein 6.4 g/dL (6.4-8.2) 07/27/22 06:55 Albumin 2.4 g/dL (3.4-5.0) L 07/27/22 06:55 Ur Random Creatinine 142.82 mg/dL 07/27/22 08:05 U Random Total Protein 38.1 mg/dL 07/27/22 08:05 U [place] Prot/Creat Ratio 0.26 07/27/22 08:05 COVID-19 Source Cancelled 07/27/22 06:26 SARS-CoV-2 (PCR) Cancelled 07/27/22 06:26 Patient ABO/Rh A Negative 07/27/22 06:55 Antibody Screen POSITIVE 07/27/22 06:55 Objective Narrative Objective Narrative: HTN labs all WNL BP stable at 130's over 80's Pt using nitrous oxide to good effect Vocalizing through contractions FOB at bedside providing support Vaginal bleeding has ceased Category 1 tracing AROM for clear fluid Subjective Interval history since last seen: Increasingly strong contractions. Using nitrous inhalant. Results Abnormal Lab Findings: Abnormal Labs 07/27/22 07/27/22 06:55 06:55 WBC 14.67 H Hgb 10.7 L Hct 33.5 L MCV 79 L MCH 25.1 L MCHC 31.9 L Carbon Dioxide 19.1 L Anion Gap 12.9 H Calcium 8.4 L AST 12 L ALT 13 L Alkaline Phosphatase 126 H Albumin 2.4 L
--- NOTE | 2022-07-27 09:38 | NUR.NOTE ---
RN reviewed CMP and urine with CNM, since pt is in a great amount of pain due to labor will hold off on taking bp at this time. Nursing Note:
--- NOTE | 2022-07-27 10:22 | W.PM.OBNL1 ---
Date of service: 07/27/22 Time of Service: : Informed Consent Informed Consent: Regional Anesthesia and Risk,Benefits,Alternatives Discussed Pelvic Exam Dilation: 7 Effacement (%): 100 station: -1 Position: ROP Cervix Position: mid Contractions Monitor Mode: Palpation Contraction Frequency(min): q3-4 Intensity: Moderate/Strong Fetus A Monitor: Doppler Heart Rate Baseline: 140 FHR Rhythm: Regular Characteristics: Normal Amniotic Membrane Status: Ruptured Assessment and Plan Assessment and plan (1) Uterine contractions: Status: Acute Assessment and plan: A: progression toward transition pt desires epidural anesthesia P: INSTRUMENTATION AND CONTROL TECHNICIAN paged, nsng medical office supervisor notified IV infusion @ 125 ml/hr PPH precautions in place for delivery Anticipate Subjective Interval history since last seen: Desires epidural
[2022-07-27] MEDS: Lactated Ringers 500 ML IV (10:23)
[2022-07-27] MEDS: FentaNYL/ROPIvacaine 2 mcg/ml and 0.1% 200 ML CADD Cassette EP (10:45)
[2022-07-27] MEDS: fentaNYL 100 MCG/2 ML VIAL (10:45)
--- NOTE | 2022-07-27 10:56 | ANES.PREOP_ITS ---
General Info Date of Service Date Performed: 07/27/22 Height: 5 ft 9 in Weight: 112.037 kg Body Mass Index (BMI): 36.4 Meds Allergies and Home Medications Allergies Allergy/AdvReac Type Severity Reaction Status Date / Time amoxicillin Allergy SKIN RASH Verified 07/24/22 10:03 clavulanic acid Allergy UNKNOWN Verified 07/24/22 10:03 codeine AdvReac Intermediate kept her Verified 07/24/22 10:03 awake for 48 hrs Home Medication Medication Instructions Recorded vitamin with calcium 1 tab PO DAILY #90 tabs 12/18/21 no.72-iron 27 mg-folic acid 1 mg tablet (PrePlus) aspirin 81 mg tablet,delayed 81 mg PO DAILY #90 tabs 01/09/22 release ondansetron 4 mg disintegrating 4 mg PO Q8H #30 tabs 02/05/22 tablet Current Visit Medications: Current Medications Generic Name Dose Route Start Last Admin Trade Name Freq PRN Reason Stop Dose Admin Bupivacaine HCl 0 ml 07/27/22 10:20 Bupivacaine 0.25% Pres-Free 10 Ml Vial EP 07/27/22 10:21 NOW ONE Fentanyl 0 mcg 07/27/22 10:20 Fentanyl 100 Mcg/2 Ml Vial EP 07/27/22 10:21 NOW ONE Fentanyl/Ropivacaine 200 ml 07/27/22 10:30 Fentanyl/Ropivacaine 2 Mcg/Ml And 0.1% 200 Ml [place] EP DIRECTED MIRANDA Sodium Chloride 500 mls @ 0 mls/hr 07/27/22 06:11 Saline 500ml Bag IV PRN PRN As Directed Ringer's Solution 1,000 mls @ 125 mls/hr 07/27/22 06:30 IV INFUSION MIRANDA Ringer's Solution 500 mls @ 500 mls/hr 07/27/22 10:20 IV 07/27/22 11:19 BOLUS ONE IV Miscellaneous Supplies 1 each 07/27/22 06:15 Iv Access IV DIRECTED MIRANDA Sodium Chloride 0 ml 07/27/22 06:11 Normal Saline Flush 10 Ml Syr IVP PRN PRN PFSH Active Problems Active Problems: Problem Status Onset Code Vaginal bleeding in O46.90 Uterine contractions O47.9 Rh negative state in antepartum period O26.899, Z67.91 Z34.90 Maternal varicella, non-immune O09.899, Z28.3 Allergy to amoxicillin Z88.0 History of macrosomia in in prior , currently O09.299 Hx of hemorrhage, currently O09.299 Lactating mother Z39.1 Medical History Medical History (Updated 07/27/22 @ 06:35 by Chuyita Raines) 11 weeks gestation of Acute blood loss anemia Encounter for insertion of mirena IUD Endometritis following delivery hemorrhage Surgical History Surgical History (Updated 07/20/20 @ 10:44 by Cristian Salcido RN) S/P left knee surgery Tonsillectomy 06/2013 Tooth extraction [place] teeth Tobacco Smoking/Tobacco Use Status: Never Alcohol Alcohol Intake: former Counseling provided: other Substance Use Substance use: Never Substance use type: does not use Counseling provided: other Prental History History 3 Para 2 Hx # Term Pregnancies 2 Multiple births 0 Hx # Pregnancies 0 Ectopic pregnancies 0 AB induced 0 Hx Number of Living Children 2 AB spontaneous 0 Past Pregnancies Del. Date GA/Weeks # Preg Succ Route Wgt Sex Labor Lgth Anesth esia Location [facility] 07/19/18 40 No vaginal 4450.875 g Male 11 hrs regional Yassine Raines [facility] 01/31/21 40 No vaginal 4170.215 g Male 6 hrs 29 min. [facility] [place] [facility] Delivery Date: 07/19/18 Last Updated by: Chuyita Raines Epidural but not effective. Pitocin & methergine for clotting. EBL 400ml. [place] Delivery Date: 01/31/21 Last Updated by: Chuyita Raines Spont labor, pit aug, epidural. Delayed PPH 3 hrs after , >1700 QBL, declines PRBC's, readmitted for endometritis. Christopher Escalera Vital Signs and Lab Results Vital Signs Most Recent Vital Signs in EMR: Most Recent Vital Signs Temp Pulse BP Pulse Ox 36.4 C L 72 134/83 100 07/27/22 09:12 07/27/22 10:55 07/27/22 10:55 07/27/22 10:43 Lab Results Result Diagrams: 07/27/22 06:55 07/27/22 06:55 Blood Type / Crossmatch: Patient ABO/Rh A Negative 07/27/22 Antibody Screen POSITIVE 07/27/22 Complete Blood Count: White Blood Count 14.67 10^3/uL (4.4-10.8) H 07/27/22 06:55 Red Blood Count 4.27 10^6/uL (3.93-5.22) 07/27/22 06:55 Hemoglobin 10.7 g/dL (11.2-15.7) L 07/27/22 06:55 Hematocrit 33.5 % (36.0-46.0) L 07/27/22 06:55 Platelet Count 150 10^3/uL (130-400) 07/27/22 06:55 Complete Metabolic Panel: Sodium Level 138 mmol/L (136-145) 07/27/22 06:55 Potassium Level 4.1 mmol/L (3.5-5.1) 07/27/22 06:55 Chloride Level 106 mmol/L (98-107) 07/27/22 06:55 Carbon Dioxide Level 19.1 mmol/L (21.0-32.0) L 07/27/22 06:55 Blood Urea Nitrogen 9 mg/dL (7-18) 07/27/22 06:55 Creatinine 0.9 mg/dL (0.55-1.02) 07/27/22 06:55 Calcium Level 8.4 mg/dL (8.5-10.1) L 07/27/22 06:55 Albumin 2.4 g/dL (3.4-5.0) L 07/27/22 06:55 Glucose Level 79 mg/dL (74-106) 07/27/22 06:55 Liver Function Panel: Alanine Aminotransferase (ALT/SGPT) 13 U/L (14-59) L 07/27/22 0 6:55 Aspartate Amino Transf (AST/SGOT) 12 U/L (15-37) L 07/27/22 06: 55 Coagulation Panel: No Data to Display Cardiac Panel: No Data to Display Arterial Blood Gas: No Data to Display Venous Blood Gas: No Data to Display Pancreas Panel: No Data to Display Thyroid Panel: No Data to Display Infectious Disease: No Data to Display Blood Cultures: No Data to Display Toxicology Panel: No Data to Display Panel: No Data to Display Anesthesia Assessment and Plan Anesthesia History Personal History: No History of Anesthesia Complications Family History: No Family History of Anesthesia Complications Exercise Tolerance Exercise Tolerance: Metabolic Equivalents>4 Pertinent Negatives Pertinent Negatives: No Symptoms of GERD, No Major Cardiovascular Symptoms or Complaints, No Major Pulmonary Symptoms or Complaints and No History of CVA/TIA Cardiac & Pulmonary Exam Cardiac Exam: Normal S1/S2 Heart Sounds Pulmonary Exam: Clear Bilateral Breath Sounds Implantable Cardiac Device Does patient have a Pacemaker or an ICD?: No Airway Exam Known Difficult Airway: No Mallampati Class: 2 Mouth Opening: Normal (> 3cm) Thyromental Distance: Greater than 3 cm Neck Range of Motion: Full ROM Neck Circumference: Normal Teeth Condition: Normal Dentition ASA Classification ASA Score: ASA 2 Emergency Case?: No NPO Status NPO Status: NPO Clears >2 hours, Solids >8 hours Status Status: Confirmed Anesthesia Plan Resuscitation Status: Full Code Anesthesia Technique: Epidural Anesthesia Airway Planned: Natural Airway Pain Management: Surgeon and patient request nerve block Monitors Used: Standard Monitors
--- NOTE | 2022-07-27 10:57 | W.ANESNEU ---
Epidural/Spinal Catheter Date Performed: 07/27/22 Procedure Start: 10:33 Procedure Stop: 10:41 Requesting Provider: Chuyita Raines Procedure Location: Obstetrics Reason Performed: Labor Epidural Standard Monitors Applied: Blood Pressure and SpO2 Patient Position: Sitting Sedation Given (Indicate Dose Given): No Sedation given Patient Mental Status: Awake Sterility: Hand Hygiene Procedure Location: L4-L5 Interspace Epidural Needle: Tuohy 17 Guage Needle Length: 3.5 Inch Needle Approach: Midline Epidural Procedure: Skin Prepped, Sterile Drape Placed, 1% Lidocaine to skin and subcutaneous tissue with 25G needle, Tuohy Needle placed, Bone Contacted despite needle repositioning (on first level, better on second) and LEONOR to Saline Used Catheter Placed?: Catheter Placed Test Dose (Indicate Dose Given): 5ml 1.5% Lidocaine with 1:200K Epinephrine Given and Negative Test Dose Loss of Resistance Depth (cm): 9 Catheter depth at skin (cm): 15 Dressing: [place] Dressing Placed, Mastisol Used and Dressing reinforced with Tape Epidural Provider Bolus (Indicate Dose Given): Total Ropivacaine 0.1% with Fentanyl 2mcg/ml Given from pump. (ml) Dose:: 10 ml and Total Bupivacaine 0.25% Given (ml) Dose:: 2 ml Additives (Indicate Dose Given ): Fentanyl PF Dose:: 25 mcg Infusion Medication: Medication Infusion Began Medication Infusion: Ropivacaine 0.1% with Fentanyl 2mcg/ml Maintenance Infusion Rate (ml/hour): 10 PCEA Bolus Dose (ml): 5 Block Level: N/A Paresthesia: None Ultrasound: Not Used Number of Attempts (See previous attempts in note section): 2 Procedure Tolerated: No Complications Procedure Outcome: Successful Performed By: Abe Boland
[2022-07-27] MEDS: Lactated Ringers 1,000 ML 125 ML IV (11:12)
[2022-07-27] MEDS: Oxytocin 10 UNITS/ML VIAL IM ×2 (11:21→11:23)
--- NOTE | 2022-07-27 11:21 | PLAC_PTH ---
PATIENT: Aranza Ledezma LOC: OBS U#:[id number] AGE/SX: 26/F ROOM: OBS.300 RE07/27/[address]: Chuyita Raines CNM : 1995 BED: A DIS: 07/28/2022 SPEC #: [id number] RECD: 07/29/22 12:49 STATUS: CHARITO REQ #: [id number] ANNA: 07/27/22 11:[address]: Chuyita Raines DEPT: Surgical Specimen RECD BY: Lily Lyons ENTERED: 07/29/22 12:51 SP TYPE: PLAC OTHR DR: Aracelis Pino Tissues: 1 - PLACENTA (3RD TRIMESTER) Procedures: GROSS AND MICRO LEVEL 5 Comments: [id number]
[2022-07-27] MEDS: miSOPROStol 200 MCG TAB 800 MCG PO (11:25)
[2022-07-27] MEDS: Ondansetron 4 MG/2 ML VIAL (11:55)
[2022-07-27] MEDS: Ondansetron 4 MG/2 ML VIAL 8 MG IVP (11:55)
[2022-07-27] MEDS: Methylergonovine 0.2 MG/ML VIAL (12:28)
--- NOTE | 2022-07-27 12:52 | W.OBDELIVERY ---
Date of service: 07/27/22 Time of Service: 12:52 OB Labor/ Delivery Information Baby A Delivery Delivery Method: Spontaneaous Presentation: Cephalic Cephalic Position: Vertex Vertex Position: Right Occipital Anterior Breech Position: N/A Cord Description-Baby A: 3 Vessels, Nuchal Cord (and right nuchal hand) and Reduced (cord loop reduced over head) Amniotic Fluid: Clear Estimated Blood Loss: QBL 400 ml @ delivery, additional 590 1 hr for total 990 ml. Delivery Outcome: Liveborn Infant Transferred: Remains with Mother Note: Pt requested epidural anesthesia at 7-8 cm dilation and ROP vtx at -1/-2. Epidural was placed with some relief though pt reported uneven coverage and continued abd pain with contractions. SVE after anesthesia was 8cm & -1 still ROP, category 1 tracing, pt turned to left lateral position, was complete and vtx +2 within 10 minutes. 2nd stage huddle was completed, and procedures for active 3rd stage management reviewed with staff. Additional nursing and support clerk were in the room prepared to assist with medication administration. Several pushes with excellent maternal efforts swiftly accomplished over intact perineum of a vigorous male , nuchal cord reduced, nuchal hand noted and shoulders came easily, placed in mother's arms immediately. With delivery of the baby came 700 ml of bloody amniotic fluid, measured in the under-drape. Pitocin IV infusion begun, cord ceased pulsating and was clamped then cut by FOB at 2 minutes of age, cord blood collected, then Dr. Horn in room for delivery of placenta which was accomplished with gentle cord traction and fundal massage. [place] placenta appears intact with 3 VC and additional bleeding quickly controlled with Pitocin 10 units IM and misoprostel 800 mg PO. QBL at this point was 400 ml above the 700 ml fluids previously in the drape. TXA was administered as a precaution. Melvin catheter placed to assure empty bladder, 200 ml urine returned. 1st degree perineal laceration repaired with 3.0 Vicryl under epidural anesthesia, no additional lacerations visualized upon inspection of vulva, vagina and cervix. Pt reported feeling nauseous and was given Zofran 8 mg IV. BP and pulse remained stable through 3rd stage, fundus firm below umbilicus, lochia was minimal, no clots expressed from cervical os or lower uterine segment. At 1 hour , clots were expressed by fundal massage so a second sweep of the lower uterine segment was performed for an additional 590 QBL. Uterine massage was performed for several minutes, methergine 0.2 mg IM given and a second dose of TXA was administered. Lochia has been appropriate upon q 15 minute inspections and vaginal sweeps since then. At 2 hrs , baby has nursed well and epidural is turned off. Plan is to remove melvin if continues stable at 3 hrs . Strong family bonding observed, apgars 8/9, weight 4250 gms. Placenta sent to pathology for description d/t suspected marginal abruption earlier in pt's course of labor. Ancef 2 gms q6 hrs will be ordered d/t multiple uterine sweeps, and a second 500 ml bag of pitocin at rate will be ordered. Providers Doctor: Magy Horn Nurse Outbound Sales Specialist: Chuyita Raines Building Insulation Installer: Abe Boland Brick Setter Operator: Johnny Villaseñor Nurse: Berenice Yip Nurse: Tunde Jovel Other: Jun Chavez RN, Hernando SUAREZ Labor/Delivery Information Number of Babies in Womb: 1 Steroids Given: None Reason Steroids Not Administered: N/A Group Beta Strep: Negative Antibiotics Administered: No Rubella Status: Immune Blood Type: A- Varicella Immunity: Equivocal Shoulder Dystocia: No Stages of Labor Onset of Labor Date: 07/26/22 Onset of Labor Time: 20:00 Complete Dilatation Date: 07/27/22 Complete Dilatation Time: 11:18 Labor - Stage 1 Duration: 24 hours and 0 minutes ROM Baby A: 07/27/22 ROM Baby A: 09:15 ROM Total Time- Baby A: [id number] Infant Delivery Date-Baby A: 07/27/22 Infant Delivery Time-Baby A: 11:21 Labor Stage 2 Duration: 3 minutes Placenta Delivery Date-Baby A: 07/27/22 Placenta Delivery Time-Baby A: 11:29 Labor-Stage 3 Duration: 8 minutes Total Length of Labor-Baby A: 15 hours and 21 minutes Placenta Status: Delivered Baby A Infant Gender: Male Gestational Status: Term (39-41.6 wks) Gestational Age in Weeks/Days: 39 Weeks and 4 Days weight: 9 lb 5.914 oz Weight Comment: 4250 gms Length-Baby A: 21 in Head Circumference-Baby A: 14.5 in Score-1 Minute Interval(Baby A) Heart Rate-1 minute: 100 BPM or Greater Respiratory Effort- 1 minute: Spontaneous/Strong Cry Muscle Tone-1 minute: Active Movement Reflex Response-1 minute: Prompt Response Color-1 minute: Pallor or Cyanosis Total Score-1 minute: 8 Score-5 Minute Interval(Baby A) Heart Rate- 5 minute: 100 BPM or Greater Respiratory Effort-5 minute: Spontaneous/Strong Cry Muscle Tone-5 minute: Active Movement Reflex Response-5 minute: Prompt Response Color-5 minute: Bluish Hands or Feet Total Score- 5 minute: 9
[2022-07-27] MEDS: Oxytocin/Normal Saline 30 UNIT/500 ML BAG 95 UNITS IV ×2 (14:00→14:10)
[2022-07-27] MEDS: ceFAZolin 2 GM/50 ML BAG IVPB ×2 (14:27→20:00)
[2022-07-27] MEDS: IRON SUCROSE COMPLEX 200 MG in Normal Saline 100 ML 400 MG IVPB (15:08)
--- NOTE | 2022-07-27 15:30 | OBPPV_ITS ---
Date of service: 07/28/22 Time of Service: 12:45 Assessment and Plan Assessment and plan (1) Term delivered: Status: Acute Assessment and plan: A: nml PPD#1, s/p , s/p PPH Asymptomatic anemia off to a good start Pt declines Varicella vaccine P: Pt desires discharge today Nbn circ done prior to discharge RhoGam injection given last night Written instructions reviewed and given to pt F/up at 2 & 6 wks (2) hemorrhage, delivered, current hospitalization: Status: Acute Assessment and plan: Hgb 8.3 Hct 26.1 this morning Pt denies dizziness, doing ADL's without trouble Vital sign stable and nml (3) Anemia: Status: Chronic Assessment and plan: Had iron infusion yesterday f/up with hgb recheck at 2 wks PP Resume PNV's w/Fe daily Consider weekly iron infusions if Hgb <11 at next check up Subjective Subjective Patient comments: No complaints, Pain well controlled, Tolerating diet and Flatus present Patient's Mood: happy, tired [place] baby status: Doing well, Nursing well, Nursery, Rooming in and Strong Bonding Observed [place] feeding status: Exclusively breast feeding Exam Physical Exam Vital signs: Temp Pulse BP Pulse Ox 97.5 F L 79 122/77 100 07/27/22 09:12 07/27/22 14:34 07/27/22 14:34 07/27/22 11:16 Vital Signs Reviewed: Yes Constitutional Constitutional: no acute distress HEENT Exam HEENT Exam: Normal Neck Exam Neck Exam: Normal Breast Exam Bilateral: Breast Exam: Normal and Soft Nipple Exam: Normal and Uninjured Respiratory Exam Respiratory Exam: Normal Cardiovascular Exam Cardiovascular Exam: Normal Abdominal Exam Abdomen: Other (soft, nontender) Fundal Exam Fundus: Below Umbilicus and Firm Rectal Exam Rectal Exam: Normal Exam Perineum: Repair Intact Extremities Exam Extremity Exam: Normal, Full ROM and Warm to Touch Back/Spine/Pelvis Exam Back Exam: Normal (bruising at epidural insertion site) Skin Exam Skin Exam: Normal Neurological Exam Neurological Exam: Normal Psychiatric Exam Psychiatric Exam: Normal
[2022-07-27] MEDS: Acetaminophen 325 MG TAB 650 MG PO (16:21)
[2022-07-27] MEDS: Dibucaine 1% 28 GM TUBE TP (16:22)
[2022-07-27] MEDS: Ibuprofen 600 MG TAB PO (16:22)
[2022-07-27] MEDS: Hamamelis Leaf/Glycerin 100 EACH BOX PR (16:23)
[2022-07-28 00:35] VITALS: BP 109/69; PULSE 64; RESP 18
[2022-07-28] MEDS: Acetaminophen 325 MG TAB 650 MG PO ×2 (01:23→08:12)
[2022-07-28] MEDS: Ibuprofen 600 MG TAB PO ×2 (01:24→08:12)
[2022-07-28] MEDS: ceFAZolin 2 GM/50 ML BAG IVPB (03:08)
[2022-07-28 06:39] LABS: HCT 26.1 % (36.0-46.0); HGB 8.3 g/dL (11.2-15.7); MCH 25.2 pg (27.0-33.0); MCHC 31.8 % (32.0-36.0); MCV 79 fL (80-95); Platelet Count 133 10^3/uL (130-400); RDW 14.5 % (11.7-14.6); RDW-SD 40.8 fL; WBC 10.44 10^3/uL (4.4-10.8)
--- NOTE | 2022-07-28 11:22 | W.ANESPOSTOP ---
Postoperative Evaluation Date, Time and Location Date Performed: 07/28/22 Time Performed: 11:00 Patient Location: Obstetrics Vital Signs Most Recent Imported Vital Signs: Most Recent Vital Signs Temp Pulse Resp BP Pulse Ox 36.6 C 64 18 109/69 100 07/27/22 20:00 07/28/22 00:35 07/28/22 00:35 07/28/22 00:35 07/27/22 11:16 Pain Score Most Recent Pain Score: Most Recent Pain Score Pain Level 4 07/28/22 01:24 Assessment Mental Status: Awake (Alert & Oriented to Patient Baseline) Airway and Respiratory Function: Patent airway with normal (patient baseline) respiratory exam Cardiovascular Function: Hemodynamically Stable Hydration Status: Adequately Hydrated Nausea & Vomiting: No Nausea or Vomiting Pain: Pt. Denies Any Pain Peripheral Nerve Block: Other (Epidural appropriately resolved, denied complaint, denied headache, denied backpain. Per RN catheter removed with tip intact.) Postoperative Comments:: ecchymosis to first epidural placement site patient reports doing well
--- NOTE | 2022-07-28 13:21 | OBVDS_ITS ---
Date of service: 07/27/22 Time of Service: 12:53 OB Labor/ Delivery Information Baby A Delivery Delivery Method: Spontaneaous Presentation: Cephalic Cephalic Position: Vertex Vertex Position: Right Occipital Anterior Breech Position: N/A Cord Description-Baby A: 3 Vessels, Nuchal Cord (and right nuchal hand) and Reduced (cord looped reduced over head) Amniotic Fluid: Clear Estimated Blood Loss: QBL 400 ml @ delivery, additional 590 1 hr for total 990 ml. Delivery Outcome: Liveborn Infant Transferred: Remains with Mother Note: Pt requested epidural anesthesia at 7-8 cm dilation and ROP vtx at -1/-2. Epidural was placed with some relief though pt reported uneven coverage and continued abd pain with contractions. SVE after anesthesia was 8cm & -1 still ROP, category 1 tracing, pt turned to left lateral position, was complete and vtx +2 within 10 minutes. 2nd stage huddle was completed, and procedures for active 3rd stage management reviewed with staff. Additional nursing and ground support agent were in the room prepared to assist with medication administration. Several pushes with excellent maternal efforts swiftly accomplished over intact perineum of a vigorous male infant, nuchal cord reduced, nuchal hand noted and shoulders came easily, placed in mother's arms immediately. With delivery of the baby came 700 ml of bloody amniotic fluid, measured in the under-drape. Pitocin IV infusion begun, cord ceased pulsating and was clamped then cut by FOB at 2 minutes of age, cord blood collected, then Dr. Horn in room for delivery of placenta which was accomplished with gentle cord traction and fundal massage. D[place]a placenta appears intact with 3 VC and additional bleeding quickly controlled with Pitocin 10 units IM and misoprostel 800 mg PO. QBL at this point was 400 ml above the 700 ml fluids previously in the drape. TXA was administered as a precaution. Melvin catheter placed to assure empty bladder, 200 ml urine returned. 1st degree perineal laceration repaired with 3.0 Vicryl under epidural anesthesia, no additional lacerations visualized upon inspection of vulva, vagina and cervix. Pt reported feeling nauseous and was given Zofran 8 mg IV. BP and pulse remained stable through 3rd stage, fundus firm below umbilicus, lochia was minimal, no clots expressed from cervical os or lower uterine segment. At 1 hour , clots were expressed during fundal massage so a second sweep of the lower uterine segment was performed for an additional 590 QBL. Uterine massage was performed for several minutes, methergine 0.2 mg IM given and a second dose of TXA was administered. Lochia has been appropriate upon q 15 minute inspections and vaginal sweeps since then. At 2 hrs , baby has nursed well and epidural is turned off. Plan is to remove melvin if continues stable at 3 hrs . Strong family bonding observed, apgars 8/9, weight 4250 gms. Placenta sent to pathology for description d/t suspected marginal abruption earlier in pt's course of labor. Ancef 2 gms q6 hrs will be ordered d/t multiple uterine sweeps, and a second 500 ml bag of pitocin at rate will be ordered. Providers Doctor: Magy Horn Nurse Orthopedic Mechanic: Chuyita Raines Thermodynamics Professor: Abe Boland Worm Grower: Johnny Villaseñor Nurse: Berenice Yip Nurse: Tunde Jovel Other: Jun Chavez RN, Hernando SUAREZ Labor/Delivery Information Number of Babies in Womb: 1 Steroids Given: None Reason Steroids Not Administered: N/A Group Beta Strep: Negative Antibiotics Administered: No Rubella Status: Immune Blood Type: A- Varicella Immunity: Equivocal Shoulder Dystocia: No Stages of Labor Onset of Labor Date: 07/26/22 Onset of Labor Time: 20:00 Complete Dilatation Date: 07/27/22 Complete Dilatation Time: 11:18 Labor - Stage 1 Duration: 24 hours and 0 minutes ROM Baby A: 07/27/22 ROM Baby A: 09:15 ROM Total Time- Baby A: [id number] Infant Delivery Date-Baby A: 07/27/22 Infant Delivery Time-Baby A: 11:21 Labor Stage 2 Duration: 3 minutes Placenta Delivery Date-Baby A: 07/27/22 Placenta Delivery Time-Baby A: 11:29 Labor-Stage 3 Duration: 8 minutes Total Length of Labor-Baby A: 15 hours and 21 minutes Placenta Status: Delivered Baby A Gender: Male Gestational Status: Term (39-41.6 wks) Gestational Age in Weeks/Days: 39 Weeks and 4 Days weight: 9 lb 5.914 oz Length-Baby A: 21 in Head Circumference-Baby A: 14.5 in Score-1 Minute Interval(Baby A) Heart Rate-1 minute: 100 BPM or Greater Respiratory Effort- 1 minute: Spontaneous/Strong Cry Muscle Tone-1 minute: Active Movement Reflex Response-1 minute: Prompt Response Color-1 minute: Pallor or Cyanosis Total Score-1 minute: 8 Score-5 Minute Interval(Baby A) Heart Rate- 5 minute: 100 BPM or Greater Respiratory Effort-5 minute: Spontaneous/Strong Cry Muscle Tone-5 minute: Active Movement Reflex Response-5 minute: Prompt Response Color-5 minute: Bluish Hands or Feet Total Score- 5 minute: 9 Hemorrrhage Note Note Note: In the setting of hx of PPH, preparations for PPH management were put in place prior to delivery. Additional nursing staff were present in room at onset of 2nd stage, anticipated medications were prepared, PPH cart was in room, IV access had been established with LR fluid infusing. OB organizational consultant and anesthesia were on unit if needed. See delivery note above for detailed narrative description of management. Summary: Initial bleeding from uterine atony was controlled within 10 minutes of placental delivery and QBL at that time was 400ml, pt hemodynamically stable with appropriate lochia and firm fundus below umbilicus. Moderate amt of clots found accumulated in lower uterine segment at 1 hour and bleeding was controlled quickly, an additional 590 ml. Lochia measured during the 2nd hour was at expected levels, minimal bleeding at 3rd hour and beyond. Hemorrhage Recognized Date Hemorrhage Recognized: 07/27/22 Time Hemorrhage Recognized: 11:21 Call for Help Date: 07/27/22 Time: 11:21 2nd RN in Room Date: 07/27/22 Time: 11:00 2nd RN: Tunde Jovel Provider in Room Date: 07/27/22 Time: 11:00 Provider: Cuhyita Raines Bimanual Uterine Compression Date: 07/27/22 Time: 11:29 RN Import/Export Clerk Notified Date: 07/27/22 Time: 11:21 RN Import/Export Clerk on Floor Date: 07/27/22 Time: 11:21 Import/Export Clerk: Brooklynn Chavez QBL Scale in Room Date: 07/27/22 Time: 11:00 OB Emergency Cart at Bedside Date: 07/27/22 Time: 11:00 Melvin Catheter Urinary Catheter Date of Insertion: 07/27/22 Time of insertion: 11:30 Urinary Catheter Size: 16 Balloon Size: 10 Inserted by: Lester MEEHAN Second Provider in Room Date: 07/27/22 Time: 11:25 Provider: Magy Horn Total Blood Loss for PPH Event Quantitative Blood Loss: 990 Labs Drawn Labs Drawn: No
--- NOTE | 2022-07-28 13:44 | W.PM.OBDISCH ---
Date of service: 07/28/22 Time of Service: 13:44 DS: Diagnosis Discharge Diagnosis (1) Term delivered: Status: Acute (2) hemorrhage, delivered, current hospitalization: Status: Acute (3) Anemia: Status: Chronic Discharge Plan Disposition Patient Disposition: HOME Condition: Good Discharge Details Reason For Visit: Spontaneous labor at term Admit Date/Time: 07/27/22 06:12 Admit Provider: Chuyita Raines Attending Provider: Chuyita Raines Primary Care Provider: Aracelis Pino [facility] Hospital Course: under epidural anesthesia, hemorrhage controlled with medication and stabilized within first hour, nml 24 hr course, asymptomatic anemia treated with iron infusion, prophylactic antibiotics given, pt desires discharge to home at 24 hrs. Home Meds and New Rx's Prescriptions: No Action PrePlus 27 mg iron- 1 mg tablet 1 tab PO DAILY Qty: 90 3RF Rx Instructions: give with food (meal/snack) Discharge Instructions Additional Instructions: Please keep your 2 & 6 wk appt's with the midwives, call for any and all concerns. Please resume taking your vitamins with iron and/or an oral iron supplement daily. Stand Alone Forms: Instructions, Post Vaginal Deliver Activity:: Activity as Tolerated Equipment/Supplies:: No Equipment Needed Diet:: Normal Diet Discharge Orders Discharge Orders: Discharge Order (Routine); Ordered 07/28/22 Ordered By: Chuyita Raines OB:DS Summary Summary Vaginal Delivery Method: Spontaneaous Contraception Discussed Contraception Discussed: Yes Contraceptive Plan: IUD, Infant Gender-Baby A: Male weight: 9 lb 5.914 oz Status at Discharge Functional status at discharge: independent ambulation Overall status at discharge: patient is progressing back to baseline Mental Status: mental status grossly normal Speech and Movement: speech and movement normal and speech clear Mood: congruent mood Affect: normal affect Exam Physical Exam Vital signs: Temp Pulse Resp BP Pulse Ox 97.9 F 64 18 109/69 100 07/27/22 20:00 07/28/22 00:35 07/28/22 00:35 07/28/22 00:35 07/27/22 11:16 Constitutional Constitutional: no acute distress HEENT Exam HEENT Exam: Normal Neck Exam Neck Exam: Normal Breast Exam Bilateral: Breast Exam: Normal and Soft Respiratory Exam Respiratory Exam: Normal Cardiovascular Exam Cardiovascular Exam: Normal Abdominal Exam Abdomen: Other (soft, nontender) Fundal Exam Fundus: Below Umbilicus and Firm Rectal Exam Rectal Exam: Normal Exam Perineum: Repair Intact Extremities Exam Extremity Exam: Normal, Full ROM and Warm to Touch Back/Spine/Pelvis Exam Back Exam: Normal (bruising at epidural insertion site) Skin Exam Skin Exam: Normal Neurological Exam Neurological Exam: Normal Psychiatric Exam Psychiatric Exam: Normal PFSH All Active Problems (Updated 07/28/22 @ 07:33 by Chuyita Raines) Anemia (Chronic) hemorrhage, delivered, current hospitalization (Acute) Term delivered (Acute) Rh negative state in antepartum period (Acute) Maternal varicella, non-immune (Acute) Allergy to amoxicillin (Acute) Lactating mother (Acute) Medical History (Updated 07/28/22 @ 07:33 by Chuyita Raines) 11 weeks gestation of Acute blood loss anemia Encounter for insertion of mirena IUD Endometritis following delivery History of macrosomia in infant in prior , currently Hx of hemorrhage, currently hemorrhage Uterine contractions Vaginal bleeding in onset with labor this morning Surgical History (Updated 07/20/20 @ 10:44 by Cristian Salcido RN) S/P left knee surgery Tonsillectomy 06/2013 Tooth extraction [place] teeth Family History Mother Essential hypertension Father Essential hypertension Social History Smoking/Tobacco Use Status: Never Smoking risk assessment performed?: Yes Alcohol Intake: former Counseling provided: other Drug use: Never Substance use type: does not use Counseling provided: other Details: stopped for Adopted: No Foster care: No 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 What is your relationship status?: Panel score (0-1 are the most socially isolated patients): 1 Seatbelt use: always Helmet use: Yes Drive intox or ride w/intox p d driver: No Water heater temp set <120 deg: Yes Working smoke detector in home: Yes Fire extinguisher in home: Yes Carbon monox detector in home: Yes Firearms in home: Yes Do you feel safe at home: Yes Do you feel safe in your relationship?: Yes Victim of physical abuse: No Victim of emotional abuse: No Victim of sexual abuse: No Female Reproductive History Menstrual control method: condoms History History 3 Para 2 Hx # Term Pregnancies 2 Multiple births 0 Hx # Pregnancies 0 Ectopic pregnancies 0 AB induced 0 Hx Number of Living Children 2 AB spontaneous 0 Past Pregnancies Del. Date GA/Weeks # Preg Succ Route Wgt Sex Labor Lgth Anesthesia Location Prov Complic 07/19/18 40 No vaginal 9 lb 13 oz Male 11 hrs regional Yassine Raines [facility] 01/31/21 40 No vaginal 9 lb 3.1 oz Male 6 hrs 29 min. regional [facility] Delivery Date: 07/19/18 Last Updated by: Chuyita Raines Epidural but not effective. Pitocin & methergine for clotting. EBL 400ml. [place] Delivery Date: 01/31/21 Last Updated by: Chuyita Raines Spont labor, pit aug, epidural. Delayed PPH 3 hrs after , >1700 QBL, declines PRBC's, readmitted for endometritis. Christopher Escalera DS: Data Vitals/I&O Vitals and I&O: Vital Signs Temperature 97.9 F 07/27/22 20:00 Pulse 64 07/28/22 00:35 Pulse Rhythm Regular 07/27/22 20:00 Respiratory Rate 18 07/28/22 00:35 Respiratory Depth Normal 07/27/22 08:44 Blood Pressure 109/69 07/28/22 00:35 Blood Pressure Mean 82 07/28/22 00:35 Pulse Oximetry 100 07/27/22 11:16 Oxygen Delivery Method Room Air 07/27/22 07:00 Oxygen Flow Rate 0 07/27/22 07:00 Pain Level 4 07/28/22 01:24 Comment 07/27/22 13:06 Intake & Output 07/27/22 07/28/22 07/28/22 23:59 11:59 23:59 Intake Total 1830 / 2330 1100 / 1100 Output Total 2790 / 3190 1800 / 1800 Balance -960 / -860 -700 / -700 Intake: IV 1830 / 2330 550 / 550 Oral 550 / 550 Output: Urine 1700 / 2100 1800 / 1800 Blood 1090 / 1090 Other: Urine Color Yellow Urine Appearance Clear Data Completed and Pending Labs on day of discharge: Labs from last 24 hours 07/28/22 07/27/22 07/27/22 06:25 19:10 06:55 WBC 10.44 RBC 3.30 L Hgb 8.3 L D Hct 26.1 L MCV 79 L MCH 25.2 L MCHC 31.8 L RDW 14.5 Plt Count 133 MPV Patient ABO/Rh A Negative Antibody Screen POSITIVE Antibody Identification See Comments Screen Pending Rhogam Unit Number [id number] Crossmatch See Detail Unit Expiration Date 02/07/24 Product Lot # [id number]
[2022-07-28] MEDS: Dibucaine 1% 28 GM TUBE TP (14:35)
[2022-07-28] MEDS: Hamamelis Leaf/Glycerin 100 EACH BOX PR (14:35)
[2022-07-28 16:03] VITALS: BP 112/71; PULSE 84; RESP 16; TEMP 37; O2SAT 99
== END 2022-07-28 14:45 | disposition home or self-care (01) | DRG 806 ==
PROVIDERS: Admitting Provider Advanced Practice Midwife; PCP Family Medicine; Visit Provider Advanced Practice Midwife
DX: O36.0930 Maternal care for other rhesus isoimmunization, third trimester, not applicable or unspecified (principal); O69.81X0 Labor and delivery complicated by cord around neck, without compression, not applicable or unspecified; Z37.0 Single live birth; O67.8 Other intrapartum hemorrhage; O99.02 Anemia complicating childbirth; D64.9 Anemia, unspecified; Z3A.39 39 weeks gestation of pregnancy; O72.2 Delayed and secondary postpartum hemorrhage
CPT/HCPCS: 36415; 80053; 85027; 85461; 86850; 86900; 86901; 86920; 87635; 90384; 82565; 84156; 86870; 86902; 88307; J0690; J1756; J2210; J2405; J2590; J3010

== ENCOUNTER 2024-02-19 11:36 | Outpatient (CLI) | payer OTHER, SELFPAY ==
[2024-02-20 08:14] LABS: HBs Antibody, Quant 71.3 mIU/mL (See Note); Hepatitis B Surface Ab Positive (See Note)
== END 2024-02-19 11:37 | disposition home or self-care (01) ==
PROVIDERS: Visit Provider Nurse Practitioner Family
DX: Z76.89 Persons encountering health services in other specified circumstances (principal)
CPT/HCPCS: 36415; 86706